=== PATIENT | male | born 1940 | race Caucasian/White ===

== ENCOUNTER 2016-07-20 08:35 | Observation (INO) | payer MEDICARE ==
[2016-07-20] MEDS ORDERED: NS 0.9% 1000 ML* 2,000 ML IV ONE (08:53)
--- NOTE | 2016-07-20 09:34 | RAD ---
INDICATION: Altered mental status. COMPARISON: Comparison is made with a prior chest x-ray study from January 19, 2016. TECHNIQUE: A portable view of the chest was obtained. FINDINGS: The patient is status poststernotomy. The heart appears mildly enlarged and unchanged from the prior exam. The lungs are clear. No pleural effusion is seen. IMPRESSION: POSTSURGICAL CHANGES, NO EVIDENCE FOR ACUTE FINDING.
[2016-07-20] MEDS ORDERED: Morphine INJ* 4 MG/ML 1 ML SYRINGE IV ONE (09:40)
[2016-07-20] MEDS ORDERED: Ondansetron INJ* 2 MG/ML VIAL IV ONE (09:40)
[2016-07-20] MEDS ORDERED: Meclizine TAB* 12.5 MG PO ONE (10:08)
[2016-07-20 10:10] LABS: Hematocrit 41 % (42-52); Hemoglobin 13.7 g/dl (14.0-18.0); Mean Corpuscular HGB Conc 33 g/dl (31-36); Mean Corpuscular Hemoglobin 32 pg (27-31); Mean Corpuscular Volume 97 fL (80-94); Mean Platelet Volume 8 um3 (7.4-10.4); Red Blood Count 4.26 10^6/ul (4.0-5.4); Red Cell Distribution Width 14 % (10.5-15); White Blood Count 5.8 10^3/ul (3.5-10.8)
[2016-07-20 10:30] LABS: Albumin 3.9 g/dL (3.2-5.2); BUN/Creatinine Ratio 24.3 (8-20); C Reactive Protein 1.32 mg/L (< 5.00); Calcium 8.8 mg/dL (8.6-10.3); EGFR African American 79.5 (>60); EGFR Non-African American 61.8 (>60); Globulin 2.6 g/dL (2-4); Magnesium 2.1 mg/dL (1.9-2.7); Potassium 4.4 mmol/L (3.5-5.0); Total Bilirubin 1.1 mg/dL (0.2-1.0); Total Protein 6.5 g/dL (6.4-8.9)
[2016-07-20] MEDS ORDERED: Iohexol 350* (CONTRAST) 500 ML MDV IV ONE (10:59)
[2016-07-20 11:04] LABS: TSH (Thyroid Stimulating Horm) 2.42 mcIU/mL (0.34-5.60)
--- NOTE | 2016-07-20 11:54 | RAD ---
INDICATION: Neck pain. COMPARISON: Comparison is made with a prior CT of the cervical spine from November 17, 2015. TECHNIQUE: Contiguous axial sections were obtained from the skull base through the T1 vertebra. Images were reconstructed in the sagittal and coronal planes. FINDINGS: The patient's neck is flexed forward. There is a mild cervical scoliosis convex toward the left side. The vertebra otherwise in normal alignment. No fracture is seen. At the C2-C3 level there is mild posterior uncinate process spurring. No significant spinal canal narrowing is present. There is mild bilateral neural foraminal narrowing. At the C3-C4 level there is mild posterior uncinate process spurring associated with a small central disc protrusion. There are moderate hypertrophic changes within the facet joints. There is mild spinal canal narrowing. There is mild neural foraminal narrowing on the right side and moderate neural foraminal narrowing on the left side. At the C4-C5 level there is mild posterior uncinate process spurring which causes mild spinal canal narrowing. There are moderate hypertrophic changes within the facet joints. There is moderate bilateral neural foraminal narrowing. At the C5-C6 level there is mild to moderate posterior uncinate process spurring. There is mild to moderate spinal canal narrowing and mild to moderate bilateral neural foraminal narrowing. At the C6-C7 level there is mild posterior uncinate process spurring. There is mild spinal canal narrowing. There is mild neural foraminal narrowing on the right side. IMPRESSION: 1. NO EVIDENCE FOR FRACTURE OR SUBLUXATION. 2. MILD TO MODERATE CERVICAL SPONDYLOSIS IF THE PATIENT'S SYMPTOMS PERSIST, RECOMMEND MR IMAGING.
--- NOTE | 2016-07-20 12:07 | RAD ---
HISTORY: Headache, neck pain COMPARISONS: Head CT dated January 19, 2016 TECHNIQUE: Multiple contiguous axial CT scans were obtained of the head before and after and of the neck After the administration of nonionic intravenous contrast timed to the systemic arterial phase of contrast enhancement. Coronal and sagittal multiplanar reformations are submitted for review. Multiple 3-D maximum intensity projection reconstructions are also submitted for review. FINDINGS: CTA NECK: AORTIC ARCH: There is atherosclerosis of the aortic arch. The left vertebral artery originates from the aortic arch. There is no appreciable ostial or proximal stenosis of the cephalic great vessels. RIGHT VERTEBRAL ARTERY: The right vertebral artery is patent along its course, without stenosis. There is calcification of the V4 segment. LEFT VERTEBRAL ARTERY: The left vertebral artery is patent along its course, without stenosis. DOMINANCE: The right vertebral artery is dominant. RIGHT COMMON CAROTID ARTERY: The right common carotid artery is patent. The right carotid bifurcation occurs at C4-C5 RIGHT INTERNAL CAROTID ARTERY: There is atheromatous disease of the right carotid bifurcation, without right internal carotid artery stenosis by NASCET criteria. RIGHT EXTERNAL CAROTID ARTERY: The right external carotid artery is unremarkable. LEFT COMMON CAROTID ARTERY: The left common carotid artery is patent. The left carotid bifurcation occurs at C4-C5 LEFT INTERNAL CAROTID ARTERY: There is atheromatous disease of the left carotid bifurcation, with approximately 20% left internal carotid artery stenosis by NASCET criteria. LEFT EXTERNAL CAROTID ARTERY: The left external carotid artery is unremarkable. VENOUS CIRCULATION: The venous system is unremarkable. SALIVARY GLANDS: The parotid glands, submandibular glands, sublingual glands are normal. NASAL CAVITY/NASOPHARYNX: The nasal cavity and nasopharynx are normal. ORAL CAVITY/OROPHARYNX: The oral cavity and oropharynx are unremarkable. LARYNGEAL APPARATUS/HYPOPHARYNX: The laryngeal apparatus and hypopharynx are normal. UPPER AIRWAY/UPPER ESOPHAGUS: The visualized upper airway and esophagus are normal. LUNG APICES: The lung apices are clear. THYROID GLAND: The thyroid gland is normal. LYMPH NODES: There is no lymphadenopathy by size criteria. BONES AND SOFT TISSUES: Degenerative changes are noted along the spine. CTA HEAD: INTRACRANIAL CIRCULATION: There is no aneurysm, vascular malformation, occlusion, or stenosis of the visualized intracranial circulation. There is calcification of the cavernous segments of internal carotid arteries bilaterally and of the distal right vertebral artery.. The anterior communicating artery complex is clear. Bilateral posterior communicating arteries are identified. VENOUS CIRCULATION: The venous system is unremarkable. PERFUSION: There is no obvious parenchymal perfusion deficit. HEMORRHAGE/INFARCT: There is no hemorrhage or acute infarct. MASSES/SHIFT: There is no mass or shift. EXTRA-AXIAL SPACES: There are no extra-axial fluid collections. SULCI AND VENTRICLES: The sulci and ventricles are normal in size and position for the patient's stated age. CEREBRUM: There are no focal parenchymal abnormalities. BRAINSTEM: There are no focal parenchymal abnormalities. CEREBELLUM: There are no focal parenchymal abnormalities. PARANASAL SINUSES: The paranasal sinuses are clear. ORBITS: The orbits are unremarkable. BONES AND SOFT TISSUE: No bone or soft tissue abnormalities are noted. OTHER: There is no abnormal enhancement. IMPRESSION: 1. NO ACUTE INTRACRANIAL PATHOLOGY. 2. ATHEROSCLEROSIS. 3. NO RIGHT INTERNAL CAROTID ARTERY STENOSIS BY NASCET CRITERIA. APPROXIMATELY 20% LEFT INTERNAL CAROTID ARTERY STENOSIS BY NASCET CRITERIA. 4. NO ANEURYSM, VASCULAR MALFORMATION, OCCLUSION, OR STENOSIS OF THE VISUALIZED INTRACRANIAL CIRCULATION. CPT II Codes: 3100F
[2016-07-20] MEDS ORDERED: NS 0.9% 1000 ML* 1,000 ML IV ONE (12:26)
[2016-07-20] MEDS ORDERED: Ketorolac INJ* 30 MG/ML 1 ML VIAL IV ONE (12:26)
[2016-07-20 14:22] LABS: Urine Bacteria Absent (Absent); Urine Bilirubin Negative (Negative); Urine Glucose Negative (Negative); Urine Nitrite Negative (Negative)
--- NOTE | 2016-07-20 14:57 | ED ---
Maurice Owens Auryana, scribed for Sony Alfonso MD on 07/20/16 at 0937 . Dizziness - HPI Summary HPI Summary: 76 year old male presents with dizziness starting this morning after getting out of bed. He characterizes the dizziness as room spinning. He also has blurred vision, back pain, neck pain that radiated up the back of the head. He states that the head pain is a 10/10. He denies any previous episodes-reports that the head pain is much worse today. He also states that he has chronic neck pain that radiates up the head- aggravated by movement. PMHx is significant for HTN, HLD, Parkinsons, and arthritis- chronic neck pain. - History Of Current Complaint Chief Complaint: EDDizziness Stated Complaint: VERTIGO Time Seen by Provider: 07/20/16 09:14 Hx Obtained From: Patient, Family/Surveillance Technician Onset/Duration: Still Present Timing: Constant Severity Initially: Mild Severity Currently: Mild Character: Room Spinning Aggravating Factor(s): Other - movement aggravates neck and head pain Associated Signs And Symptoms: Positive: Visual Changes - blurred vision, Other : - neck, head, and back pain - Allergies/Home Medications Allergies/Adverse Reactions: Allergies Allergy/AdvReac Type Severity Reaction Status Date / Time Penicillins Allergy Intermediate Rash Verified 12/20/11 14:00 PMH/Surg Hx/FS Hx/Imm Hx Endocrine/Hematology History: Denies: Hx Diabetes Cardiovascular History: Reports: Hx Coronary Artery Disease, Hx Hypercholesterolemia, Hx Hypertension Denies: Hx Congestive Heart Failure, Hx Pacemaker/ICD GI History: Reports: Other GI Disorders - constipation Musculoskeletal History: Reports: Hx Arthritis Sensory History: Reports: Hx Cataracts, Hx Contacts or Glasses Denies: Hx Hearing Aid Opthamlomology History: Reports: Hx Cataracts, Hx Contacts or Glasses Psychiatric History: Denies: Hx Panic Disorder - Surgical History Surgery Procedure, Year, and Place: CORONARY STENT Hx Anesthesia Reactions: Yes Infectious Disease History: No Infectious Disease History: Denies: Traveled Outside the [place] in Last 30 Days - Family History Known Family History: Positive: Cardiac Disease, Diabetes - brother - Social History Occupation: Retired Lives: With Family Alcohol Use: None Substance Use Type: Reports: None Hx Tobacco Use: No Smoking Status (MU): Never Smoked Tobacco Review of Systems Positive: Other - dizziness. Negative: Fever Positive: Blurred Vision ENT: Negative Cardiovascular: Negative Respiratory: Negative Positive: Arthralgia - back and neck pain Skin: Negative Positive: Headache Psychological: Normal All Other Systems Reviewed And Are Negative: Yes Physical Exam Triage Information Reviewed: Yes Vital Signs On Initial Exam: Initial Vitals Temp Pulse Resp BP Pulse Ox 98.1 F 71 16 175/79 96 07/20/16 08:46 07/20/16 08:46 07/20/16 08:46 07/20/16 08:46 07/20/16 08:46 Vital Signs Reviewed: Yes Appearance: Positive: Well-Appearing, Pain Distress - mild Skin: Positive: Warm, Skin Color Reflects Adequate Perfusion, Dry Head/Face: Positive: Normal Head/Face Inspection Eyes: Positive: EOMI, EDDIE ENT: Positive: Normal ENT inspection Neck: Positive: Supple, Nontender Respiratory/Lung Sounds: Positive: Clear to Auscultation, Breath Sounds Present Cardiovascular: Positive: RRR Abdomen Description: Positive: Nontender, Soft Bowel Sounds: Positive: Present Musculoskeletal: Positive: Normal, Strength/ROM Intact Neurological: Positive: Normal, Sensory/Motor Intact - slowed reaction time - pmhx is significant for parkinsons, Alert, Oriented to Person Place, Time, CN Intact II-III, Other - no focal neurological deficits Psychiatric: Positive: Normal, Affect/Mood Appropriate Diagnostics - Vital Signs Vital Signs Temp Pulse Resp BP Pulse Ox 07/20/16 08:46 98.1 F 71 16 175/79 96 - Laboratory Lab Results: Lab Results 07/20/16 07/20/16 07/20/16 Range/Units 09:45 09:45 09:45 WBC 5.8 (3.5-10.8) 10^3/ul RBC 4.26 (4.0-5.4) 10^6/ul Hgb 13.7 L (14.0-18.0) g/dl Hct 41 L (42-52) % MCV 97 H (80-94) fL MCH 32 H (27-31) pg MCHC 33 (31-36) g/dl RDW 14 (10.5-15) % Plt Count 133 L (150-450) 10^3/ul MPV 8 (7.4-10.4) um3 Neut % (Auto) 65.0 (38-83) % Lymph % (Auto) 23.8 L (25-47) % [place] % (Auto) 8.5 (1-9) % Eos % (Auto) 2.1 (0-6) % Baso % (Auto) 0.6 (0-2) % Absolute Neuts (auto) 3.8 (1.5-7.7) 10^3/ul Absolute Lymphs (auto) 1.4 (1.0-4.8) 10^3/ul Absolute Monos (auto) 0.5 (0-0.8) 10^3/ul Absolute Eos (auto) 0.1 (0-0.6) 10^3/ul Absolute Basos (auto) 0 (0-0.2) 10^3/ul Absolute Nucleated RBC 0 10^3/ul Nucleated RBC % 0 INR (Anticoag Therapy) 0.95 (0.89-1.11) APTT 25.6 L (26.0-36.3) seconds D-Dimer, Quantitative 203 (Less Than 230) ng/mL Sodium 139 (133-145) mmol/L Potassium 4.4 (3.5-5.0) mmol/L Chloride 105 (101-111) mmol/L Carbon Dioxide 28 (22-32) mmol/L Anion Gap 6 (2-11) mmol/L BUN 28 H (6-24) mg/dL Creatinine 1.15 (0.67-1.17) mg/dL Est GFR ( Amer) 79.5 (>60) Est GFR (Non-Af Amer) 61.8 (>60) BUN/Creatinine Ratio 24.3 H (8-20) Glucose 121 H (70-100) mg/dL Lactic Acid (0.5-2.0) mmol/L Calcium 8.8 (8.6-10.3) mg/dL Magnesium 2.1 (1.9-2.7) mg/dL Total Bilirubin 1.10 H (0.2-1.0) mg/dL AST 18 (13-39) U/L ALT 4 L (7-52) U/L Alkaline Phosphatase 92 (34-104) U/L Total Creatine Kinase 85 (10-223) U/L CK-MB (CK-2) 1.9 (0.6-6.3) ng/mL Troponin I 0.00 (<0.04) ng/mL C-Reactive Protein 1.32 (< 5.00) mg/L B-Natriuretic Peptide ( - 100) pg/mL Total Protein 6.5 (6.4-8.9) g/dL Albumin 3.9 (3.2-5.2) g/dL Globulin 2.6 (2-4) g/dL Albumin/Globulin Ratio 1.5 (1-3) Lipase 23 (11.0-82.0) U/L TSH 2.42 (0.34-5.60) mcIU/mL Urine Color Urine Appearance Urine pH (5-9) Ur Specific [place] (1.010-1.030) Urine Protein (Negative) Urine Ketones (Negative) Urine Blood (Negative) Urine Nitrate (Negative) Urine Bilirubin (Negative) Urine Urobilinogen (Negative) Ur Leukocyte Esterase (Negative) Urine WBC (Auto) (Absent) Urine RBC (Auto) (Absent) Urine Bacteria (Absent) Urine Glucose (Negative) 07/20/16 07/20/16 07/20/16 Range/Units 09:45 09:45 14:10 WBC (3.5-10.8) 10^3/ul RBC (4.0-5.4) 10^6/ul Hgb (14.0-18.0) g/dl Hct (42-52) % MCV (80-94) fL MCH (27-31) pg MCHC (31-36) g/dl RDW (10.5-15) % Plt Count (150-450) 10^3/ul MPV (7.4-10.4) um3 Neut % (Auto) (38-83) % Lymph % (Auto) (25-47) % [place] % (Auto) (1-9) % Eos % (Auto) (0-6) % Baso % (Auto) (0-2) % Absolute Neuts (auto) (1.5-7.7) 10^3/ul Absolute Lymphs (auto) (1.0-4.8) 10^3/ul Absolute Monos (auto) (0-0.8) 10^3/ul Absolute Eos (auto) (0-0.6) 10^3/ul Absolute Basos (auto) (0-0.2) 10^3/ul Absolute Nucleated RBC 10^3/ul Nucleated RBC % INR (Anticoag Therapy) (0.89-1.11) APTT (26.0-36.3) seconds D-Dimer, Quantitative (Less Than 230) ng/mL Sodium (133-145) mmol/L Potassium (3.5-5.0) mmol/L Chloride (101-111) mmol/L Carbon Dioxide (22-32) mmol/L Anion Gap (2-11) mmol/L BUN (6-24) mg/dL Creatinine (0.67-1.17) mg/dL Est GFR ( Amer) (>60) Est GFR (Non-Af Amer) (>60) BUN/Creatinine Ratio (8-20) Glucose (70-100) mg/dL Lactic Acid 1.5 (0.5-2.0) mmol/L Calcium (8.6-10.3) mg/dL Magnesium (1.9-2.7) mg/dL Total Bilirubin (0.2-1.0) mg/dL AST (13-39) U/L ALT (7-52) U/L Alkaline Phosphatase (34-104) U/L Total Creatine Kinase (10-223) U/L CK-MB (CK-2) (0.6-6.3) ng/mL Troponin I (<0.04) ng/mL C-Reactive Protein (< 5.00) mg/L B-Natriuretic Peptide 48 ( - 100) pg/mL Total Protein (6.4-8.9) g/dL Albumin (3.2-5.2) g/dL Globulin (2-4) g/dL Albumin/Globulin Ratio (1-3) Lipase (11.0-82.0) U/L TSH (0.34-5.60) mcIU/mL Urine Color Straw Urine Appearance Clear Urine pH 6.0 (5-9) Ur Specific Venus 1.016 (1.010-1.030) Urine Protein Negative (Negative) Urine Ketones Negative (Negative) Urine Blood 1+ H (Negative) Urine Nitrate Negative (Negative) Urine Bilirubin Negative (Negative) Urine Urobilinogen Negative (Negative) Ur Leukocyte Esterase Negative (Negative) Urine WBC (Auto) Absent (Absent) Urine RBC (Auto) Trace(0-2/hpf) (Absent) Urine Bacteria Absent (Absent) Urine Glucose Negative (Negative) Result Diagrams: 07/20/16 09:45 07/20/16 09:45 Lab Statement: Any lab studies that have been ordered have been reviewed, and results considered in the medical decision making process. - Radiology CXR Xray Interpretation: No Acute Changes - IMPRESSION: POSTSURGICAL CHANGES, NO EVIDENCE FOR ACUTE FINDING. Radiology Interpretation Completed By: Radiologist - CT CERVICAL CT Interpretation: Positive (See Comments) - IMPRESSION: 1. NO EVIDENCE FOR FRACTURE OR SUBLUXATION. 2. MILD TO MODERATE CERVICAL SPONDYLOSIS IF THE PATIENT 'S SYMPTOMS PERSIST, RECOMMEND MR IMAGING. CT Interpretation Completed By: Radiologist HEAD CTA CT Interpretation: No Acute Changes - IMPRESSION: 1. NO ACUTE INTRACRANIAL PATHOLOGY. 2. ATHEROSCLEROSIS. 3. NO RIGHT INTERNAL CAROTID ARTERY STENOSIS BY NASCET CRITERIA. APPROXIMATELY 20% LEFT INTERNAL CAROTID ARTERY STENOSIS BY NASCET CRITERIA. 4. NO ANEURYSM, VASCULAR MALFORMATION, OCCLUSION, OR STENOSIS OF THE VISUALIZED INTRACRANIAL CIRCULATION. CT Interpretation Completed By: Radiologist BRAIN CT Interpretation: No Acute Changes - IMPRESSION: 1. NO ACUTE INTRACRANIAL PATHOLOGY. 2. ATHEROSCLEROSIS. 3. NO RIGHT INTERNAL CAROTID ARTERY STENOSIS BY NASCET CRITERIA. APPROXIMATELY 20% LEFT INTERNAL CAROTID ARTERY STENOSIS BY NASCET CRITERIA. 4. NO ANEURYSM, VASCULAR MALFORMATION, OCCLUSION, OR STENOSIS OF THE VISUALIZED INTRACRANIAL CIRCULATION. CT Interpretation Completed By: Radiologist - EKG 09:01 EKG Interpretation: NSR @ 64, [address] elevation V1, flatten T in III, no ectopy National Institutes Of Health - NIH Scale Level of Consciousness: Alert/Keenly Responsive - slowed - Dx: parkinsons Ask Patient the Month and His/Her Age: Both Correct Ask Pt to Open/Close Eyes and Slotter Operator Helper/Release Non-Paretic Hand: Both Correctly Best Gaze (Only Horizontal Eye Movement): Normal Visual Field Testing: No Visual Loss Facial Paresis-Pt to Smile & Close Eyes or Grimace Symmetry: Normal/Symmetrical Motor Function - Right Arm: No Drift-Holds 10 Seconds Motor Function - Left Arm: No Drift-Holds 10 Seconds Motor Function - Right Leg: No Drift-Holds 10 Seconds Motor Function - Left Leg: No Drift-Holds 10 Seconds Limb Ataxia-Must be out of Proportion to Weakness Present: Absent Sensory (Use Pinprick to Test Arms/Legs/Trunk/Face): Normal Best Language (Describe Picture, Name Items): No Aphasia Dysarthria (Read Several Words): Normal Extinction and Inattention: No Abnormality Total Score: 0 Dizzy Course/Dx - Course Course Of Treatment: NO CRITICAL CARE TIME Assessment/Plan: FARIAS AND DIZZINESS DECREASED IN ED HOWEVER, PATIENT UNABLE TO AMBULATE SAFELY. HE HAS PARKINSONS AND LIVES ALONE. ADMIT HOSPITALIST STABLE. - Diagnoses Provider Diagnoses: Headache, Neck pain, Dizziness - Provider Notifications Discussed Care Of Patient with: HOSPITALIST Time Discussed With Above Provider: 14:45 Discharge - Discharge Plan Condition: Stable Disposition: ADMITTED TO [facility] Referrals: Sony Kwok MD [Primary Care Provider] - The documentation as recorded by the Maurice snowden Auryana accurately reflects the service I personally performed and the decisions made by , Sony Alfonso MD.
[2016-07-20] MEDS ORDERED: Acetaminophen TAB* 325 MG PO PRN (16:10)
[2016-07-20] MEDS ORDERED: Polyethylene Glycol 3350* 17 GM PACKET PO PRN (16:12)
[2016-07-20] MEDS ORDERED: NS 0.9% 1000 ML* 1,000 ML IV SCH (16:15)
[2016-07-20] MEDS ORDERED: Carbidopa/Levodop 25/100 MG TAB(*) ONE (16:19)
[2016-07-20] MEDS: Carbidopa/Levodop 25/100 MG TAB(*) PO SCH ×2 (16:21→20:22)
[2016-07-20] MEDS: Metoprolol Succinate XL TAB* 50 MG PO SCH (17:12)
--- NOTE | 2016-07-20 20:15 | HP ---
HISTORY AND PHYSICAL: DATE OF ADMISSION: 07/20/16 PRIMARY CARE PROVIDER: Dr. Kwok. NEUROLOGIST: Dr. Talbert. CHIEF COMPLAINT: Dizziness. HISTORY OF PRESENT ILLNESS: Cristhian Jennings is a 76-year-old male with a history of Parkinson's, who stated that today in the morning, he got up and he proceeded to get up from bed and he noted to be lightheaded. He stated that he developed vertigo and the room was spinning. He was given meclizine in the emergency department and the dizziness improved. He said that he still feels a little bit unsteady on his feet, but he ambulated with a roller walker without any major problems. Nevertheless, he has several steps in his home and he is not strong enough to be able to return home at this point. He is going to be placed on overnight observation with a diagnosis of dizziness. PAST MEDICAL HISTORY: 1. Parkinson's. 2. Hyperlipidemia. 3. Hypertension. 4. Coronary artery disease. 5. Arthritis. 6. Constipation. 7. Status post coronary artery bypass grafting. MEDICATIONS: 1. Polyethylene glycol 17 g daily p.r.n. 2. [place]-3 fatty acids 1000 mg daily. 3. Naproxen 500 mg daily. 4. Aspirin 81 mg daily. 5. Metoprolol succinate 150 mg daily. 6. Carbidopa/levodopa 25/100 one tablet at 7 a.m., 11, 1500, and 1900. 7. Lipitor 10 mg daily. FAMILY HISTORY: Positive for mother who at the age of 54 secondary to [place]. Father who in his 80s secondary to prostate cancer. All of his brothers had "heart attacks." SOCIAL HISTORY: The patient quit smoking 40 years ago. He denies any alcohol or drug use. He lives with his brother. He lists him as his surrogate. His name is Shailesh Jennings. The patient's [id number] who is present in the room stated that the patient usually ambulates independently. He has multiple stairs to all parts of his home. He had been driving "only to [place]" in the past several days. REVIEW OF SYSTEMS: Please see history of present illness. The patient stated that he is a little bit "slower" today due to not taking his medications while in the ED. Otherwise, he had been in his usual state of health. He denies any chest pain or shortness of breath. He did not have any recent upper respiratory infection symptoms. Had no history of nausea, vomiting, or diarrhea. All the remaining 14 systems were reviewed with the patient and were otherwise negative. Please also note that the patient is slightly forgetful. It is difficult to obtain an entire history from him. Please note that the patient's [id number] mentioned that the patient has problems with his neck and has had problems with his neck for quite some time and he is unable to turn his head to left or to right due to severe osteoarthritis. PHYSICAL EXAMINATION GENERAL: The patient is a 76-year-old male, very pleasant, who is in no acute distress. The patient is alert and oriented x3. Poor short-term memory. VITAL SIGNS: Blood pressure of 169/78, heart rate of 67 and regular, respiratory rate 17, oxygen saturation 95% on room air. HEENT: Head: Atraumatic, normocephalic. Eyes: Pupils equal, reactive to light and accommodation. Oropharynx clear. Mucosa moist. NECK: Supple. No JVD, no bruit bilaterally. RESPIRATORY: Clear to auscultation bilaterally. CARDIOVASCULAR: Regular rate and rhythm. No murmur. ABDOMEN: Soft, nontender. Bowel sounds present in all 4 quadrants. EXTREMITIES: There is trace bilateral ankle edema. Pulses +2 bilaterally. There is no clubbing or cyanosis. NEURO: The patient has masked facies. He is noted to have rigidity. He is definitely slow to respond. He is able to get out of bed with 1-person support and ambulate with a roller walker without any assistance. His [id number] is not dysmetric. His strength is 5/5 bilaterally. His speech is clear. There is no pronator drift. DIAGNOSTIC STUDIES/LAB DATA: hemoglobin of 13.7, hematocrit of 41, MCV of 97 , and platelets of 133. Sodium 139, potassium 4.4, chloride 100, carbon dioxide 28, BUN 28, creatinine 1.15. Liver function tests were unremarkable except for mild elevation of bilirubin of 1.1. Head CTA, impression: "No acute intracranial pathology. Atherosclerosis. No right internal carotid artery stenosis by NASCET criteria. Approximately, 20% left internal carotid artery stenosis by the criteria. No aneurysm, vascular malformation, occlusion, or stenosis of the visualized intracranial circulation. C-spine CT, impression: "No evidence for fracture or subluxation. Mild-to- moderate cervical spondylosis. If the patient's symptoms persist, recommend MRI imaging." Brain CT, impression: "No acute intracranial pathology." The patient's EKG showed normal sinus rhythm with a heart rate of 64 beats per minute with prolonged NH interval. There were no ST changes. Portable chest x-ray, impression: "Postsurgical changes. No evidence for acute findings." ASSESSMENT AND PLAN: Cristhian Jennings is a 76-year-old male with a history of Parkinson's, who has had problems with ambulation for quite some time. Today, he presents with dizziness that happened upon getting up from bed. He had a very similar presentation in February 2016. At this point, brain MRI and C- spine MRI were performed and apart from the C-spine MRI showing degenerative disk disease, there was no evidence of abnormalities. The patient's sister-in- law who was present today in the room stated that the patient had exactly the same symptoms today as in February. The patient did appear to have slight orthostasis when I checked him today. When he sat up, his blood pressures were in the 180s. When he stood up, they were 160. At this point, I suspect this is multifactorial and he may be slightly orthostatic and dehydrated. It may also be progression of his Parkinson's and autonomic dysfunction. At this point, I will place him on gentle intravenous hydration and reinstitute his levodopa that he has not had today yet. I will ask Physical Therapy to see the patient in the morning for evaluation. At this point, there is no indication that the patient needs a repeat MRI since he had that done in February for exactly the same symptoms. Also, please note that the patient's symptoms are improving after meclizine treatment in the ED. In regards to the patient's Parkinson's, the patient is going to be continued to be treated with Sinemet. For his hypertension, we will restart his hypertensive medications from home. For DVT prophylaxis, the patient is going to be placed on heparin subcutaneously. The patient's code status was discussed with the patient and he requested to be a full code. TIME SPENT: Approximately 65 minutes was spent on admission of this patient, more than half that time was spent [id number] with the patient during the interview and physical exam. CC: Dr. Kwok* [id number]/[facility] #: [id number] SUSANA
[2016-07-20] MEDS: Docusate CAP* 100 MG PO SCH (20:22)
[2016-07-20] MEDS: Heparin VIAL(*) 5000 UNITS/ML VIAL (FIVE THOUSAND) SUBCUT SCH (22:23)
[2016-07-21] MEDS: Carbidopa/Levodop 25/100 MG TAB(*) PO SCH ×2 (05:50→12:12)
[2016-07-21] MEDS: Heparin VIAL(*) 5000 UNITS/ML VIAL (FIVE THOUSAND) SUBCUT SCH (05:51)
[2016-07-21 06:03] LABS: Hematocrit 39 % (42-52); Hemoglobin 12.7 g/dl (14.0-18.0); Mean Corpuscular HGB Conc 33 g/dl (31-36); Mean Corpuscular Hemoglobin 33 pg (27-31); Mean Corpuscular Volume 99 fL (80-94); Mean Platelet Volume 8 um3 (7.4-10.4); Red Blood Count 3.91 10^6/ul (4.0-5.4); Red Cell Distribution Width 15 % (10.5-15); White Blood Count 4.7 10^3/ul (3.5-10.8)
[2016-07-21 06:17] LABS: BUN/Creatinine Ratio 23.9 (8-20); Calcium 8.1 mg/dL (8.6-10.3); EGFR African American 77.9 (>60); EGFR Non-African American 60.6 (>60); Potassium 4.7 mmol/L (3.5-5.0)
[2016-07-21] MEDS: Docusate CAP* 100 MG PO SCH (08:09)
[2016-07-21] MEDS: Metoprolol Succinate XL TAB* 50 MG PO SCH (08:09)
[2016-07-21] MEDS ORDERED: Aspirin EC Low Dose* 81 MG TAB.EC PO SCH (09:00)
[2016-07-21] MEDS ORDERED: Atorvastatin* 10 MG TAB PO SCH (09:00)
[2016-07-21 13:48] VITALS: BP 129/60
--- NOTE | 2016-07-22 01:08 | DS ---
CC: Dr. Kwok; Dr. Talbert DISCHARGE SUMMARY: DATE OF ADMISSION: 07/20/16 DATE OF DISCHARGE: 07/21/16 PRIMARY CARE PROVIDER: Dr. Kwok. DISCHARGE DIAGNOSIS: Dizziness, most likely due to orthostasis. SECONDARY DIAGNOSES: 1. Parkinson's. 2. Hyperlipidemia. 3. Hypertension. 4. Coronary artery disease. 5. Arthritis. 6. History of constipation. 7. Status post coronary artery bypass grafting. MEDICATIONS AT DISCHARGE: Unchanged from admission and include: 1. Polyethylene glycol 17 g daily p.r.n. 2. [place]-3 fatty acids 1000 mg daily. 3. Naproxen 500 mg daily. 4. Aspirin 81 mg daily. 5. Metoprolol succinate 150 mg daily. 6. Carbidopa/levodopa 25/100 one tablet at 7 a.m., 11, 1500, and 1900. 7. Lipitor 10 mg daily. LABORATORY DATA AND STUDIES: Performed during the hospital stay included: On 07/21/16, white blood cell count of 4.7, hemoglobin of 12.7, hematocrit of 39 , and platelets of 108. Sodium was 140, potassium 4.7, chloride 108, carbon dioxide 30, BUN 28, creatinine 1.17. Remaining study included head CTA, brain CT, and cervical spine CT. For the report, please see history and physical dictated on 07/20/16. HOSPITALIZATION COURSE: Cristhian Jennings is a 76-year-old male with a history of Parkinson's, who stated that he got dizzy when he sat up in the morning after sleeping all night and developed dizziness. He came into the emergency department for evaluation. He was treated with meclizine and he improved greatly, but still continued to have somewhat unsteady gait and he was placed on observation. A very similar episode he had in February 2016 when an MRI of the brain and MRI of the C- spine was performed that were unremarkable. The patient stated that he does occasionally gets dizzy when he stands up. He also is deconditioned and has had problems with ambulation due to his Parkinson's. Nevertheless, he stated that he still continues to drive. During the admission, it was reinforced with the patient and the patient's family that he is not suppose to drive unless he is cleared by his primary care provider. The patient underwent physical therapy evaluation and he was noted be safe to ambulate and able to use stairs with the walker. He was noted to have orthostasis with systolic pressures going from 180s when he was being admitted and sitting down to 160 when he was standing up. It is possible that he has an element of autonomic dysfunction due to his Parkinson' s. Nevertheless, during his observation, he was also treated mild intravenous fluid hydration. We have continued his oral medications for his hypertension and he was normotensive by the time of discharge with no evidence of further dizziness. It is also possible that he does have an element of paroxysmal benign positional vertigo. I also advised for the patient to may be try to take his Sinemet when he still in bed and it will be easier for him to get out of bed after he takes it in the morning. Apparently in the past, the patient has had problems with getting out of bed and had fallen a couple of times. The patient has a brother at home with whom he lives with. His brother apparently has no problems with ambulation at all and he is able to help the patient at home. We will also set the VNS services for the patient with physical therapy. At discharge, the patient's medications are unchanged. Physical exam at discharge is unchanged from admission. [id number]/[facility] #: [id number] SUSANA
== END 2016-07-21 13:15 | disposition home or self-care (01) ==
LOC: ED 08:35 → MEDTELE 14:37
PROVIDERS: ADMIT Internal Medicine; ATTEND Internal Medicine
DX: R42 Dizziness and giddiness (principal); G20 Parkinson's disease; E78.5 Hyperlipidemia, unspecified; I10 Essential (primary) hypertension; E78.00 Pure hypercholesterolemia, unspecified; I25.10 Atherosclerotic heart disease of native coronary artery without angina pectoris; M19.90 Unspecified osteoarthritis, unspecified site; Z95.1 Presence of aortocoronary bypass graft; R94.31 Abnormal electrocardiogram [ECG] [EKG]; Z79.82 Long term (current) use of aspirin; Z79.899 Other long term (current) drug therapy; Z88.0 Allergy status to penicillin; Z87.891 Personal history of nicotine dependence
CPT/HCPCS: 36415; 70450; 70496; 70498; 71010; 72125; 80048; 80053; 81003; 81015; 82550; 82553; 83605; 83690; 83735; 83880; 84443; 84484; 85025; 85379; 85610; 85730; 86140; 93005; 96361; 96372; 96374; 99285; A9270-GY; G0378; G8978-GP-CI; G8979-GP-CI; G8980-GP-CI; J1644; J1885; J2270; J2405; Q9967

== ENCOUNTER 2017-07-07 12:33 | Emergency (ER) | payer MEDICARE, BC ==
[2017-07-07 14:50] VITALS: BP 172/81
== END 2017-07-07 16:14 | disposition left against medical advice (07) ==
LOC: ED 12:33
DX: R03.0 Elevated blood-pressure reading, without diagnosis of hypertension (principal); R69 Illness, unspecified; Z53.21 Procedure and treatment not carried out due to patient leaving prior to being seen by health care provider

== ENCOUNTER 2018-05-22 13:26 | Observation (INO) | payer MEDICARE, BC ==
--- NOTE | 2018-05-22 13:48 | ED ---
Altered Mental Status - HPI Summary HPI Summary: This pt is a 77 y/o male presenting to [facility] via EMS from home for confusion and unwitnessed fall. Family reports pt fell today and pt does not remember. Per brother, pt was warming up food in the microwave when he suddenly fell. Brother heard the thud from the fall and saw him on the floor but does not why pt fell. Upon arrival of another family member, pt did not know where he was. Per family, at the house pt was c/o right shoulder pain. Brother states pt has chronic back and hip pain. Family also report pt was unable to recognize them. Per brother, pt is usually active in the house with his cane and drives a few times a week. PMHx includes Parkinson's, quadruple bypass. His PCP is [facility]. - History Of Current Complaint Stated Complaint: AMS-[facility] Time Seen by Provider: 05/22/18 13:29 Hx Obtained From: Patient, Family/Suture Winder Hand - Brother Hx From Patient Unobtainable Due To: Other - pt with confusion Onset/Duration: Still Present Timing: Lasting Hours Character: Confusion Aggravating Factor(s): Unknown Alleviating Factor(s): Unknown Associated Signs And Symptoms: Positive: Recent Trauma. Negative: Fever Related History: Other: - unwitnessed fall today - Allergies/Home Medications Allergies/Adverse Reactions: Allergies Allergy/AdvReac Type Severity Reaction Status Date / Time Penicillins Allergy Severe Hives Verified 07/07/17 12:43 Home Medications: Home Medications Furosemide TAB* [Lasix TAB*] 20 mg PO BID 05/22/18 [History Confirmed 05/22/18] Losartan TAB* [Cozaar TAB*] 25 mg PO DAILY 05/22/18 [History Confirmed 05/22/18] Naproxen TAB* [Naprosyn 250 mg TAB*] 500 mg PO QAM 05/22/18 [History Confirmed 05/22/18] PMH/Surg Hx/FS Hx/Imm Hx Endocrine/Hematology History: Denies: Hx Diabetes Cardiovascular History: Reports: Hx Coronary Artery Disease, Hx Hypercholesterolemia, Hx Hypertension Denies: Hx Congestive Heart Failure, Hx Pacemaker/ICD GI History: Reports: Other GI Disorders - constipation Musculoskeletal History: Reports: Hx Arthritis Sensory History: Reports: Hx Cataracts, Hx Contacts or Glasses Denies: Hx Hearing Aid Opthamlomology History: Reports: Hx Cataracts, Hx Contacts or Glasses Psychiatric History: Denies: Hx Panic Disorder - Surgical History Surgery Procedure, Year, and Place: CORONARY STENT. Quadruple bypass surgery Hx Anesthesia Reactions: Yes Infectious Disease History: No Infectious Disease History: Denies: Traveled Outside the [place] in Last 30 Days - Family History Known Family History: Positive: Cardiac Disease, Diabetes - brother - Social History Alcohol Use: None Substance Use Type: Reports: None Hx Tobacco Use: No Smoking Status (MU): Never Smoked Tobacco Review of Systems - ROS Summary Review of Systems Summary: ROS IS LIMITED DUE TO LEVEL 5 CAVEAT - pt with confusion Negative: Fever Musculoskeletal: Other - POS: right shoulder pain Neurological: Other - POS: confusion All Other Systems Reviewed And Are Negative: No Physical Exam - Summary Physical Exam Summary: GENERAL: Patient is a well-developed and nourished male who is lying comfortable in the stretcher. Patient is not in any acute respiratory distress. HEAD AND FACE: Normocephalic EYES: PERRLA, EOMI x 2. EARS: Hearing grossly intact. MOUTH: Oropharynx within normal limits. NECK: Supple, trachea is midline, no adenopathy, no JVD, no carotid bruit. CHEST: Symmetric, no tenderness at palpation. Thoracotomy scar that is clean, dry, and intact. LUNGS: Clear to auscultation bilaterally. No wheezing or crackles. CVS: Regular rate and rhythm, S1 and S2 present, no murmurs or gallops appreciated. ABDOMEN: Soft, non-tender. Bowel sounds are normal. No abdominal abnormal pulsations. Abdomen is distended. EXTREMITIES: Tender to palpation on the right shoulder. NEURO: Alert and oriented x 3. No acute neurological deficits. Speech is normal and follows commands. SKIN: Dry and warm Triage Information Reviewed: Yes Vital Signs On Initial Exam: Initial Vitals Temp Pulse Resp BP Pulse Ox 98.2 F 74 16 171/80 95 05/22/18 13:38 05/22/18 13:38 05/22/18 13:38 05/22/18 13:38 05/22/18 13:38 Vital Signs Reviewed: Yes Completion Of Physical Exam Limited Due To: Level 5 - pt with confusion Diagnostics - Vital Signs Vital Signs Temp Pulse Resp BP Pulse Ox 05/22/18 13:38 98.2 F 74 16 171/80 95 - Laboratory Result Diagrams: 05/22/18 14:05 05/22/18 14:05 Lab Statement: Any lab studies that have been ordered have been reviewed, and results considered in the medical decision making process. - Radiology Chest XR Radiology Interpretation Completed By: Radiologist Summary of Radiographic Findings: IMPRESSION: Post surgical changes, no evidence for acute finding. Dr. Krueger has reviewed this report. Right shoulder XR Radiology Interpretation Completed By: Radiologist Summary of Radiographic Findings: IMPRESSION: Possible nondisplaced fracture of the glenoid process of the scapula. Dr. Krueger has reviewed this report. - CT Brain CT CT Interpretation Completed By: Radiologist Summary of CT Findings: IMPRESSION: No acute intracranial pathology. Dr. Krueger has reviewed this report. Cervical spine CT CT Interpretation Completed By: Radiologist Summary of CT Findings: IMPRESSION: Degenerative disc disease and osteoarthritis. No acute osseous injury to the cervical spine. Dr. Krueger has reviewed this report. Abdomen/Pelvis CT CT Interpretation Completed By: Radiologist Summary of CT Findings: IMPRESSION: 1. No evidence for acute intra-abdominal abnormality. 2. Hepatic steatosis. Dr. Krueger has reviewed this report. Right Upper Extremity CT CT Interpretation Completed By: Radiologist Summary of CT Findings: Pending official radiology report. - EKG 14:01 Cardiac Rate: NL - at 69 bpm EKG Rhythm: Sinus Rhythm EKG Comparison: No Significant Change - Similar to prior EKG. Summary of EKG Findings: Prolonged ME interval. IVCD. Re-Evaluation - Re-Evaluation First Eval Re-Evaluation Time: 16:19 Comment: Reviewed lab, CTs, and XRs results with pt and family. Discussed admission plan. Family and pt understand and agree. Altered Mental Statu Course/Dx - Course Assessment/Plan: Pt is a 77 y/o male presenting to [facility] via EMS from home for confusion and fall today. Labs remarkable for hemoglobin of 12.7, hematocrit of 38, platelet count of 116, creatinine of 1.3, ALT of 3. Brain CT is negative for an intracranial pathology. Cervical spine CT shows degenerative disc disease and osteoarthritis. No acute osseous injury to the cervical spine. Abdomen/pelvis CT reveals 1. No evidence for acute intra-abdominal abnormality. 2. Hepatic steatosis. Chest XR is negative. Right shoulder shows possible nondisplaced fracture of the glenoid process of the scapula. Therefore a CT of the right upper extremity was ordered. I discussed results with patient and family. The family agree with admission plan. Discussed the case with Dr. Proctor, hospitalist, who accepted the pt for admission. I also discussed with Dr. Proctor that there is a possible nondisplaced fracture of the right shoulder and a CT has been ordered. Dr. Proctor is aware of this. - Diagnoses Provider Diagnoses: Unwitnessed fall, Shoulder pain - Provider Notifications Discussed Care Of Patient With: Regina Proctor - hospitalist Time Discussed With Above Provider: 16:40 Instructed by Provider To: Admit As Inpatient Discharge - Sign-Out/Discharge Documenting (check all that apply): Patient Departure - Admit to [facility] Patient Received Moderate/Deep Sedation with Procedure: No - Discharge Plan Condition: Stable Disposition: ADMITTED TO [facility] Referrals: Eric Louie MD [Primary Care Provider] - - Billing Disposition and Condition Condition: STABLE Disposition: Admitted to [facility] - Attestation Statements Document Initiated by Scribe: Yes Documenting Scribe: Mirian Robles Provider For Whom Esau is Documenting (Include Credential): Oj Krueger MD Scribe Attestation: Mirian Owens, scribed for jO Krueger MD on 05/22/18 at 1824. Scribe Documentation Reviewed: Yes Provider Attestation: The documentation as recorded by the Mirian snowden accurately reflects the service I personally performed and the decisions made by , Oj Krueger MD Status of Scribe Document: Viewed
[2018-05-22 14:23] LABS: Activated Partial Thrombo Time 25.4 seconds (26.0-36.3); INR 0.98 (0.77-1.02)
[2018-05-22 14:27] LABS: ABS Basophils 0 10^3/ul (0-0.2); ABS Eosinophils 0.1 10^3/ul (0-0.6); ABS Lymphocytes 1.1 10^3/ul (1.0-4.8); ABS Monocytes 0.7 10^3/ul (0-0.8); ABS Neutrophils 3.8 10^3/ul (1.5-7.7); ABS Nucleated RBC 0 10^3/ul; Eosinophil % 1.5 %; Hematocrit 38 % (42-52); Hemoglobin 12.7 g/dl (14.0-18.0); Lymphocyte % 19.5 %; Mean Corpuscular HGB Conc 34 g/dl (31-36); Mean Corpuscular Hemoglobin 33 pg (27-31); Mean Corpuscular Volume 98 fL (80-94); Mean Platelet Volume 8.1 fL (7.4-10.4); Nucleated Red Blood Cells % 0; Platelet Count 116 10^3/ul (150-450); Red Blood Count 3.84 10^6/ul (4.00-5.40); Red Cell Distribution Width 14 % (10.5-15); White Blood Count 5.7 10^3/ul (3.5-10.8)
[2018-05-22 14:34] LABS: Albumin/Globulin Ratio 1.5 (1-3); BUN/Creatinine Ratio 26.2 (8-20); Calcium 8.8 mg/dL (8.6-10.3); EGFR African American 64.8 (>60); EGFR Non-African American 53.5 (>60); Globulin 2.7 g/dL (2-4); Magnesium 2.2 mg/dL (1.9-2.7); Potassium 4.4 mmol/L (3.5-5.0); Total Bilirubin 1.1 mg/dL (0.2-1.0); Total Protein 6.7 g/dL (6.4-8.9)
[2018-05-22 14:37] LABS: CKMB ng/mL 1.3 ng/mL (0.6-6.3)
[2018-05-22] MEDS ORDERED: Iodixanol* (CONTRAST) 320 MG/ML 100 ML SDV IV ONE (14:43)
[2018-05-22] MEDS ORDERED: NS 0.9% 1000 ML** 1,000 ML IV ONE (16:32)
[2018-05-22] MEDS ORDERED: Magnesium Hydroxide LIQ* 30 ML UDC PO PRN (17:59)
[2018-05-22] MEDS ORDERED: Acetaminophen TAB* 325 MG PO PRN (17:59)
[2018-05-22] MEDS ORDERED: Polyethylene Glycol 3350* 17 GM PACKET PO PRN (18:04)
[2018-05-22] MEDS ORDERED: hydrALAZINE IV* 20 MG/ML VIAL IV SLOW PU PRN (18:32)
[2018-05-22] MEDS ORDERED: oxyCODONE/Acetamin 5/325 MG* TAB PO PRN (18:42)
[2018-05-22] MEDS: Carbidopa/Levodop 25/100 MG TAB(*) PO SCH (21:18)
[2018-05-22] MEDS: Heparin VIAL(*) 5000 UNITS/ML VIAL (FIVE THOUSAND) SUBCUT SCH (21:19)
[2018-05-22] MEDS: Furosemide TAB* 20 MG PO SCH (21:19)
--- NOTE | 2018-05-23 00:16 | HP ---
CC: Dr. Louie; Dr. Alex Talbert * ADMISSION HISTORY AND PHYSICAL: DATE OF ADMISSION: 05/22/18 ATTENDING FOR THIS ADMISSION: Regina Reza MD * (DICTATED BY PAULO HUIZAR NP) PRIMARY CARE PROVIDER: Dr. Louie. NEUROLOGY: Dr. Alex Talbert. CHIEF COMPLAINT: Fall. HISTORY OF PRESENT ILLNESS: This is a very pleasant 77-year-old male patient with long-standing history of Parkinson's disease. He has had multiple falls in the past. He has also had some memory issues over the past year and was treated for orthostasis at one point as well with some concern for autonomic dysfunction. In any case, today, he was at home in his usual state of health. His brother was in the other room and he heard a thud and then found the patient on the floor. The patient did not have any recollection of the precipitating events. He did not lose consciousness. Brother said that he did not observe any lacerations. Patient, although he was awake for the entire event, seemed to not remember how he ended up on the floor. Discussing that with the patient in the emergency department, he denies that he had any precipitating events, but he is still having trouble remembering. There was also a questionable shoulder fracture, as there was potential that he had fracture of the glenoid. For these reasons, we were asked to evaluate the patient for admission. PAST MEDICAL HISTORY: Significant for hypertension, coronary artery disease, hyperlipidemia, Parkinson's disease, and frequent falls with gait dysfunction. He also has chronic arthritis and chronic constipation. PAST SURGICAL HISTORY: Significant for stents, 4-vessel CABG; bilateral ankle surgery secondary to trauma. MEDICATIONS: Medications at home include: 1. Lasix 20 mg p.o. b.i.d. 2. Sinemet 2 tabs at 7 a.m., 1 tab at 11 a.m., 2 tabs at 3 p.m., and 1 tab at 7 p.m. 3. Lipitor 10 mg daily. 4. Metoprolol succinate XL 150 mg p.o. daily. 5. MiraLax 17 g daily as needed. 6. Aspirin 81 mg daily. 7. Naprosyn 500 mg in the morning. 8. Losartan 25 mg p.o. daily. ALLERGIES: The patient has allergy to PENICILLIN. FAMILY HISTORY: Significant for mother who of SD at age 54. Father who in his 80s of prostate cancer. He has had other siblings that have had MIs and have coronary artery disease as well. SOCIAL HISTORY: The patient was former smoker, quit approximately 48 years ago. Denies any alcohol use. Denies any illicit drug use. He lives with his brother, Shailesh. His other brother Don is also at the bedside. REVIEW OF SYSTEMS: Patient denies any fever, fatigue or chills. No headaches. No blurry vision. Does state that he has some eye fatigue, but denies any visual disturbance. Denies shortness of breath. No chest pain. No abdominal pain. No nausea. No vomiting. He has got some general arthralgias and myalgias, particularly in the back and the shoulder. He also has described a burning like sensation bilaterally of the lower extremities and no further constitutional complaints. PHYSICAL EXAMINATION GENERAL: The patient is awake, alert, in no acute distress. VITAL SIGNS: Blood pressure 154/82, heart rate 63, respiratory rate 13, O2 saturation 93 to 96% on room air with a temperature of 98.2. HEENT: The patient is atraumatic, normocephalic. PERRLA. Nonicteric sclerae. He does have mass like appearance to his face. Oral mucosa is moist. He is edentulous. Tongue is midline. NECK: Supple, nontender. No JVD noted. No carotid bruit auscultated. LUNGS: Clear bilaterally to auscultation with no wheezing, rhonchi, or rales. CARDIOVASCULAR: S1, S2 present. No murmurs, gallops, or rubs noted. Rate and rhythm are regular. ABDOMEN: Soft, nontender, nondistended. Positive bowel sounds in all 4 quadrants. : Deferred. MUSCULOSKELETAL: There is no clubbing. No cyanosis. No edema. He has +2 distal pulses palpable. The patient states he does ambulate with a walker. He has not ambulated since being in the ED. NEUROLOGIC: He is currently alert and oriented x2. Again, no recollection of the previous events. He is a poor historian at baseline. Has equal administrative judge. No pronator drift. He has slurred speech at baseline, but it is difficult to discern secondary to his Parkinson's and again he is edentulous, but he is otherwise appropriate. PSYCHIATRIC: Cooperative, calm, and appropriate. LABORATORY DATA: WBCs 5.7, RBCs 3.84, hemoglobin 12.7, hematocrit 38, MCV 98, MCH 33, platelets 116. Sodium 141, potassium 4.4, chloride 1.5, CO2 of 29, BUN 34, creatinine 1.30. GFR 53.5, glucose 106, lactic acid 0.8, calcium 8.8, magnesium 2.2, total bilirubin 1.10, AST 13, ALT 3, alk phos 97. Troponin was negative at 0.00 and 0.01. BNP 48. Total protein 6.7, albumin 4.0, globulin 2.7. Albumin globulin ratio was 1.5. INR is 0.98. IMAGING: CT of the brain shows no acute intracranial pathology. CT of the cervical spine shows degenerative disk disease and osteoarthritis with no acute osseous injury to the cervical spine. Chest x-ray shows postsurgical changes, status post sternotomy and CABG which is noted. Heart is moderately enlarged but unchanged from previous imaging. CT of the abdomen and pelvis. CT shows no evidence for acute intra-abdominal abnormality. There was no bleeding and no traumatic injury. Shoulder x-ray: Initially the shoulder plain film showed possible nondisplaced fracture of glenoid process and scapula. CAT of the shoulder to confirm whether this is a fracture or not, shows no acute fracture. There was some degenerative change in the right shoulder. I also reviewed this film with Dr. Keenan of Orthopedics, who agrees there is no fracture. Lastly, EKG showed regular sinus rhythm, some nonspecific intraventricular conduction delay, no acute ST segment changes noted. IMPRESSION: This is a 77-year-old male with history of falls and gait dysfunction, parkinsonian-like gait, who presents status post fall, which was unwitnessed. PLAN: The patient has been admitted to observation. DIAGNOSES: 1. Fall. It is questionable whether the patient does have some autonomic dysfunction secondary to advancing Parkinson's. He did have history of some orthostasis in the past. Also, because this was an unwitnessed event and because the patient is stating he did not have a recollection of what happened prior to, I feel it would be worth it to get an EEG to ensure there was no seizure activity. Dr. Talbert has been consulted. He will see the patient tomorrow. I did discussed this with Dr. Herrera from Neurology, who is monorail helper , who agreed that completing an EEG and obtaining orthostatic vital signs would be warranted at this point. We will hold off on any advanced imaging until the patient is seen by Dr. Talbert. We will obtain physical therapy and occupational therapy consults given that the patient does have some peripheral neuropathy, it may also be playing into his current state to evaluate for his baseline functioning. 2. For his history of Parkinson disease, the patient is on Sinemet. His doses were confirmed to Dr. Herrera. Medications were adjusted. This will be continued and again Dr. Talbert will be seeing the patient tomorrow. 3. For his history of coronary artery disease, as stated above, his EKG has no changes. He does not endorse any shortness of breath or chest pain. Because he does not remember the events and we do not have recent echocardiogram, we will get an echo to evaluate for any valvular abnormalities and to assess left ventricular function. At this point, I think obtaining a stress test would not be needed unless we find some new findings on his echocardiogram. 4. For history of hypertension, he was hypertensive at admission. This may have been secondary to pain. The patient did have some high readings 170s/80s and at one point, a diastolic of 101. His blood pressure is currently improved , it is 154/82. I questioned if patient did not take all of his mediations this morning; however, we will continue him on his metoprolol XL, his Lasix and also his Cozaar. 5. For his history of hyperlipidemia, he will be continued on his baby aspirin daily and also Lipitor. 6. Diet: The patient should have a heart healthy diet. 7. Activity: Out of bed with assistance as tolerated. Again, with physical therapy and occupational therapy consults requested. 8. DVT prophylaxis. He will be placed on heparin subcu. 9. Code status: He is a full code. The rest of the patient's course will be determined by further diagnostics, laboratories and any other input from other providers as warranted during this admission. We will continue to monitored the patient closely and appreciate any recommendations from Neurology regarding this patient's plan of care. Please also note we have consulted Social Work to identify if the patient has any additional needs at home and this has also been discussed with his brother, who is at bedside. His brother is in agreement with the plan and this plan of care has been discussed also with Dr. Regina Reza, who is also in agreement with plan of care. TIME SPENT: >65 minutes PAULO HUIZAR, STAMPING MILL TENDER [id number]/[facility] #: [id number] SUSANA
[2018-05-23] MEDS: Heparin VIAL(*) 5000 UNITS/ML VIAL (FIVE THOUSAND) SUBCUT SCH ×3 (05:20→12:48)
[2018-05-23 07:24] LABS: Albumin 3.8 g/dL (3.2-5.2); Albumin/Globulin Ratio 1.5 (1-3); BUN/Creatinine Ratio 23.8 (8-20); Calcium 8.8 mg/dL (8.6-10.3); EGFR African American 82.9 (>60); EGFR Non-African American 68.5 (>60); Globulin 2.6 g/dL (2-4); Total Bilirubin 1.6 mg/dL (0.2-1.0); Total Protein 6.4 g/dL (6.4-8.9)
[2018-05-23] MEDS: Furosemide TAB* 20 MG PO SCH (07:55)
[2018-05-23] MEDS: Carbidopa/Levodop 25/100 MG TAB(*) PO SCH ×3 (07:56→14:24)
[2018-05-23] MEDS ORDERED: Losartan TAB* 25 MG PO SCH (09:00)
[2018-05-23] MEDS ORDERED: Atorvastatin* 10 MG TAB PO SCH (09:00)
[2018-05-23] MEDS ORDERED: Aspirin EC TAB* 81 MG TAB.EC PO SCH (09:00)
[2018-05-23] MEDS ORDERED: Metoprolol Succinate XL TAB* 50 MG PO SCH (09:00)
--- NOTE | 2018-05-23 15:12 | ECHO ---
Patient: JACKELINE FRYE [facility] Rec#: [id number] : 1940 Date: 05/23/2018 Age: 77y Height: 175 cm / 68.9 in Weight: 106.8 kg / 235.4 lbs Sex: M BSA: 2.2 Room#: 408 Admit Date#: 05/22/2018 Type: Inpatient Referring: Janel Marks Reading: Ish Martin MD Replanter: Su Rhodes RN RDCS CC: Eric Louie MD Transthoracic Echocardiogram Indication: CAD, altered mental status BP: 144/63 HR: 66 Rhythm: NSR Findings History: CAD with CABG and coronary stents, HTN, HLD, Parkinson's disease, frequent falls, former smoker Left Ventricle: The left ventricular chamber size is normal. Mild concentric left ventricular hypertrophy is observed. Septal wall hypertrophy is observed. There are multiple regional wall motion abnormalities. There is mild to moderately decreased left ventricular systolic function. The estimated ejection fraction is 40-45%. Ventricular septal wall motion has a post-operative appearance. Abnormal left ventricular diastolic function is observed. Left Atrium: The left atrium is slightly dilated. Right Ventricle: The right ventricular chamber size and systolic function are within normal limits. Right Atrium: The right atrium is mildly dilated. Aortic Valve: The aortic valve structure is not well visualized. The aortic valve leaflets are mildly thickened. There is mild aortic regurgitation. There is no evidence of aortic stenosis. Mitral Valve: The mitral valve leaflets are mildly thickened. There is trace to mild mitral regurgitation. There is no evidence of mitral stenosis. Tricuspid Valve: The tricuspid valve leaflets are normal. There is trace tricuspid regurgitation. Unable to estimate the right ventricular systolic pressure. There is no tricuspid stenosis. Pulmonic Valve: The pulmonic valve structure is not well visualized. There is no evidence of pulmonic regurgitation. There is no pulmonic stenosis. Pericardium: There is no significant pericardial effusion. A pericardial fat pad is visualized. Aorta: There is no dilatation of the ascending aorta. The aortic arch is not well visualized. There is no dilation of the aortic root. Pulmonary Artery: The main pulmonary artery is not well visualized. Venous: The venous system is not well visualized. The inferior vena cava is not visualized. Summary: There are changes noted when compared to the previous study done on 01/03/2005, now there is interval LV EF improvement from 25-30% then. Conclusions The left ventricular chamber size is normal. Mild concentric left ventricular hypertrophy is observed. There are multiple regional wall motion abnormalities. The estimated ejection fraction is 40-45%. WMA proximal to mid inferior wall and basal inferoseptum Ventricular septal wall motion has a post-operative appearance. The left atrium is slightly dilated. There is mild aortic regurgitation. There is trace to mild mitral regurgitation. There is trace tricuspid regurgitation. There are changes noted when compared to the previous study done on 01/03/2005, now there is interval LV EF improvement from 25-30% then. Measurements Name Value Normal Range RVDdMajor (2D) 3.1 cm (2.2 - 4.4) RAd ISD 4CH 5.8 cm (3.4 - 4.9) RA (A4C)W 3.3 cm (2.9 - 4.6) IVSd (2D) 1.1 cm (0.6 - 1) LVPWd (2D) 0.9 cm (0.6 - 1) LVIDd (2D) 3.8 cm (3.6 - 5.4) LVIDs (2D) 3.2 cm - LV FS (2D) 16 % (25 - 45) Aortic Annulus 2 cm (1.4 - 2.6) Ao root diameter (2D) 3.4 cm (2.1 - 3.5) Ascending Ao 2.8 cm (2.1 - 3.4) LA dimension (AP) 2D 3.5 cm (2.3 - 3.8) LAd ISD 4CH 5.6 cm (2.9 - 5.3) LA ISD 4CH W 3.9 cm (2.5 - 4.5) Name Value Normal Range LA ESV BP (A/L) index 28 ml/m2 - Name Value Normal Range MV E-wave Vmax 0.49 m/sec - MV deceleration time 335 msec - MV A-wave Vmax 0.72 m/sec - MV E:A ratio 0.7 ratio - LV septal e' Vmax 0.07 m/sec - LV lateral e' Vmax 0.07 m/sec - LV E:e' septal ratio 7 ratio - LV E:e' lateral ratio 7 ratio - Name Value Normal Range AV Vmax 1.2 m/sec - AV VTI 24.4 cm - AV peak gradient 5 mmHg - AV mean gradient 3 mmHg - LVOT Vmax 0.88 m/sec - LVOT VTI 15.9 cm - LVOT peak gradient 3 mmHg - LVOT mean gradient 2 mmHg - Name Value Normal Range PV Vmax 0.76 m/sec -
[2018-05-23 15:43] VITALS: BP 102/60
[2018-05-23 16:36] LABS: Urine Appearance Clear; Urine Bilirubin Negative (Negative); Urine Blood Negative (Negative); Urine Color Yellow; Urine Glucose Negative (Negative); Urine Ketones Trace (Negative); Urine Nitrite Negative (Negative); Urine Protein Negative (Negative); Urine Specific Gravity 1.016 (1.010-1.030); Urine Urobilinogen Negative (Negative)
--- NOTE | 2018-05-23 17:20 | PN ---
Progress Note - Progress Note Date of Service: 05/23/18 Note: I spoke to Darius's ([id number]) and she will have him return to the hospital to bring the patient home.
--- NOTE | 2018-05-23 20:19 | CONS ---
NEUROLOGY CONSULTATION: DATE OF CONSULT: 05/23/18 LOCATION: He is an inpatient in room 408. REFERRING PROVIDER: Janel Neal NP PRIMARY CARE PROVIDER: Dr. Louie. CHIEF COMPLAINT: Fall. HISTORY OF PRESENT ILLNESS: Cristhian Jennings is a 77-year-old man known to me from initial in-hospital evaluation in 2016 when I felt he had Parkinson disease. He had developed progressive difficulty walking. He responded to Sinemet to some extent. He presented yesterday when he fell at home. He lives with one of his sons. Two of his sons are present currently, but the one that he lives with is not here. One of them lives next door. They say that, his son heard him fall, but then he could not get him up. He denies loss of consciousness, but the patient is cognitively impaired. However, the son who came from next door said that he was conscious and at no point that anyone find him to be unresponsive. It took 2 men to get him back up again and they brought him into the emergency room to be evaluated. As part of his evaluation, he had an x-ray of his left shoulder because of shoulder pain, which interpreted as showing a nondisplaced fracture of the glenoid process of the scapula. Currently, he feels well and does not complain of any pain. We were asked to consult. PAST MEDICAL HISTORY: His past history is notable for parkinsonism, which is atypical. I thought he might have progressive supranuclear palsy as he has significant supranuclear gaze deficits. He has a history of coronary artery disease with stenting and bypass grafting, bilateral ankle injuries requiring surgery. He has a history of hypertension, hyperlipidemia. MEDICATIONS: At home consist of: 1. Sinemet 25/100 two tablets at 7 a.m. and 3 p.m. and one tablet at 11 a.m. and 7 p.m. 2. Lipitor 10 mg daily. 3. Metoprolol XL 150 mg p.o. daily. 4. Losartan 25 mg p.o. daily. 5. Aspirin 81 mg p.o. daily. 6. Naproxen 500 mg p.o. q.a.m. 7. Lasix 20 mg p.o. b.i.d. ALLERGIES: He is allergic to PENICILLIN. SOCIAL HISTORY: He is an ex-smoker. Does not drink alcohol. Lives with one of his sons. REVIEW OF SYSTEMS: Notable for chronic constipation. He denies headache or pain currently. He says his vision is "pretty good." No recent chest pain and denies shortness of breath. No recent intestinal issues. No recent weight loss. No fevers or chills. PHYSICAL EXAM: Temperature 97.2, heart rate in the 70s and regular. Respiratory rate is 24 and oxygen saturation is 95% on room air. Orthostatic blood pressure was obtained earlier this afternoon and lying it is 150/80, sitting 124/78, standing 102/60. Neurological Exam: He has grade 4 hypomimia. Eye movements are notable for marked decrease in volitional gaze and smooth pursuit. He is able to see fully to the right and left, but has to move his head to look down. He has absent upgaze. Speech is mildly dysarthric and hypophonic. On motor exam, he has diffuse cogwheel rigidity worse in the right arm and leg than the left. Strength is normal in the upper extremities, but he has mild hip flexor which is worse on the left. He is markedly bradykinetic. There is minimal low amplitude rest tremor in the left hand. Finger taps are very slow bilaterally and fairly symmetrically. He is a very poor historian, who tends to confabulate. He loses his train of thought easily. DIAGNOSTIC STUDIES/LAB DATA: Laboratory data includes a CT of the brain that was obtained on admission, which reveals atrophy only. Transthoracic echocardiogram interpreted as showing multiple regional wall motion abnormalities. There is decreased left ventricular function with estimated ejection fraction 40% to 45%. Additional laboratory studies notable for a CBC with a mild anemia yesterday, hemoglobin 12.7, chemistries from yesterday notable for a BUN of 34, creatinine 1.3 which came down to BUN 25 and creatinine 1.05 this morning. Chemistry profile is otherwise unremarkable. 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 He has autonomic insufficiency with orthostatic hypotension. However, the description is that of a fall, but not faint. He may have just gotten weak because of his significant drop in blood pressure. I would recommend backing off on some of his antihypertensive medications. They should block the head of his bed at home so that he sleeps at a tilt rather than fully supine. I will discuss with Dr. Kardon what would be the best choice, but I think that the losartan would probably the first thing to go. We may need to tolerate a certain amount of supine hypertension in order to compensate for his fairly severe orthostatic hypotension. [id number]/[facility] #: [id number] SUSANA
--- NOTE | 2018-05-23 20:59 | EEG ---
ELECTROENCEPHALOGRAPHY: DATE OF STUDY: 05/23/18 - ROOM #408 REFERRING PROVIDER: Janel Neal NP LOCATION: He is an inpatient on [address] CLINICAL PROBLEM: Episode of loss of consciousness with fall. The patient has a history of Parkinson disease. The patient is having memory problems. MEDICATIONS: Include: 1. Sinemet. 2. Heparin. 3. Lasix. 4. Lipitor. 5. Cozaar. 6. Toprol. 7. Apresoline. 8. Percocet. REPORT: This 16-channel EEG is remarkable for background rhythms consisting of an occipital rhythm of about 7 cycles per second, which is reasonably symmetric. There was central and bitemporal slowing. There are no activation procedures attempted. The patient drowses with vertex slowing and some sleep spindles periodically. There are no clinical events. There are no focal, lateralized, or epileptiform abnormalities. CLINICAL IMPRESSION: Mildly abnormal EEG due to mild generalized slowing of background rhythms. This tracing is compatible with mild diffuse cerebral dysfunction. There are no focal or epileptiform features to this recording. [id number]/[facility] [place] #: [id number] MTDD
--- NOTE | 2018-05-23 22:15 | DS ---
CC: Dr. Talbert; Dr. Louie * DISCHARGE SUMMARY: DATE OF ADMISSION: 05/22/18 DATE OF DISCHARGE: 05/23/18 HOSPITAL COURSE: The 77-year-old man who presented after a fall on the morning of 05/22/18. He put something in the microwave standing up. He was alone in the room and he fell over. His brother in the next room heard a noise and came in and found him on the floor. The patient was conscious. The patient himself has impaired memory and does not really recall what happened before he fell. He does not think he passed out, but is not really clear about this. He did not hit his head. He did not have any shaking or incontinence. He has had multiple falls in the past but not causing any injury. The patient was admitted. He had an upper extremity CT, abdomen and pelvis CT, shoulder x-ray. No significant injury was found. He had a CT of the brain and CT of the cervical spine. Dr. Talbert saw him in consultation and felt that the main problem was his orthostatic hypotension. His blood pressure fell from 150/80 to 102/60 unchanged from supine to standing position. He was not symptomatic at that time. Although the patient received all those medications in the hospital on discharge , he is going to omit the losartan. He will follow up with both Dr. Talbert and Dr. Louie. I note he had an EEG while in the hospital which showed no seizure activity. He had an echocardiogram, which showed an ejection fraction of 40% to 45% with multiple wall motion abnormalities. This is improved from the last echocardiogram in the hospital in 2004 with a markedly lower ejection fraction at that time. I do not think his clinical problems at this time are related to his heart disease. FINAL DIAGNOSES: 1. Orthostatic hypotension. 2. Parkinson's disease. 3. Coronary artery disease. DISCHARGE MEDICATIONS: 1. Atorvastatin 10 mg daily. 2. Metoprolol succinate 150 mg daily. 3. Polyethylene glycol 17 g daily p.r.n. 4. Aspirin 81 mg daily. 5. Carbidopa/levodopa 25/100 one tablet at 7 a.m., 11 a.m., 3 p.m. and 7 p.m. 6. Furosemide 20 mg once daily. This is a reduction from his dose of twice daily. 7. Naproxen 500 mg daily. DISPOSITION ON DISCHARGE: Discharge home. CONDITION ON DISCHARGE: Stable. [id number]/[facility] #: [id number] SUSANA
== END 2018-05-23 18:50 | disposition home or self-care (01) ==
LOC: ED 13:26 → MED 17:59
PROVIDERS: ADMIT Internal Medicine; ATTEND Internal Medicine
DX: I95.1 Orthostatic hypotension (principal); G20 Parkinson's disease; I25.10 Atherosclerotic heart disease of native coronary artery without angina pectoris; M25.511 Pain in right shoulder; Z79.82 Long term (current) use of aspirin; E78.5 Hyperlipidemia, unspecified; K59.00 Constipation, unspecified; Z95.5 Presence of coronary angioplasty implant and graft; Z87.891 Personal history of nicotine dependence; Z88.0 Allergy status to penicillin; Z91.81 History of falling
CPT/HCPCS: 36415; 70450; 71045; 72125; 74177; 80053; 81003; 82553; 83605; 83735; 83880; 84484; 85025; 85610; 85730; 93005; 93306; 95819; 96372; 99285; A9270-GY; G0378; G8978-GP-CJ; G8979-GP-CI; G8987-GO-CJ; G8988-GO-CI; J1644; Q9967

== ENCOUNTER 2018-09-27 13:55 | Emergency (ER) | payer MEDICARE, BC ==
--- NOTE | 2018-09-27 17:25 | ED ---
Adult Trauma - HPI Summary HPI Summary: 78-year-old male presents with 2 falls today. He states he ended up losing his balance and twisted his one ankle and then next time he twisted ankle other ankle. he did hit his head. He admits to neck pain and lower back pain. He states his hips may hurt. He denies any chest pain or shortness of breath. Denies any bowel pain. States he does have a little bit of left-sided rib pain from the fall. Denies any arm pain. Has a history of parkinsons and stumbles often. falls were mechanical falls. - History of Current Complaint Chief Complaint: EDFall Stated Complaint: FALL PER EMS Time Seen by Provider: 09/27/18 14:36 Pain Intensity: 2 - Additional Pertinent History Primary Care Physician: OSCAR - Allergy/Home Medications Allergies/Adverse Reactions: Allergies Allergy/AdvReac Type Severity Reaction Status Date / Time Penicillins Allergy Severe Hives Verified 07/07/17 12:43 PMH/Surg Hx/FS Hx/Imm Hx Endocrine/Hematology History: Denies: Hx Diabetes Cardiovascular History: Reports: Hx Coronary Artery Disease, Hx Hypercholesterolemia, Hx Hypertension Denies: Hx Congestive Heart Failure, Hx Pacemaker/ICD GI History: Reports: Other GI Disorders - constipation Musculoskeletal History: Reports: Hx Arthritis Sensory History: Reports: Hx Cataracts, Hx Contacts or Glasses Denies: Hx Eye Injury, Hx Hearing Aid Opthamlomology History: Reports: Hx Cataracts, Hx Contacts or Glasses Denies: Hx Eye Injury Psychiatric History: Denies: Hx Panic Disorder - Surgical History Surgery Procedure, Year, and Place: CORONARY STENT. Quadruple bypass surgery Hx Anesthesia Reactions: Yes Infectious Disease History: No Infectious Disease History: Denies: Traveled Outside the [place] in Last 30 Days - Family History Known Family History: Positive: Cardiac Disease, Diabetes - brother - Social History Alcohol Use: None Substance Use Type: Reports: None Hx Tobacco Use: No Smoking Status (MU): Never Smoked Tobacco Review of Systems Negative: Fever Negative: Chest Pain Negative: Shortness Of Breath Positive: Myalgia - neck pain, lower back pain, bilateral ankle pain Negative: Headache All Other Systems Reviewed And Are Negative: Yes Physical Exam Triage Information Reviewed: Yes Vital Signs On Initial Exam: Initial Vitals Temp Pulse Resp BP Pulse Ox 98.1 F 76 22 144/73 96 09/27/18 14:00 09/27/18 14:00 09/27/18 14:00 09/27/18 14:00 09/27/18 14:00 Vital Signs Reviewed: Yes Appearance: Positive: Well-Appearing Skin: Positive: Warm, Dry Head/Face: Positive: Normal Head/Face Inspection Eyes: Positive: Normal, EOMI, EDDIE, Conjunctiva Clear ENT: Positive: Normal ENT inspection, Pharynx normal, TMs normal Neck: Positive: Other: - nontender neck Respiratory/Lung Sounds: Positive: Clear to Auscultation, Breath Sounds Present , Other - tenderness lateral left ribs Cardiovascular: Positive: Normal, RRR Abdomen Description: Positive: Nontender, Soft Bowel Sounds: Positive: Present Musculoskeletal: Positive: Limited @ - ankle and feet, Other - tenderness over bilateral ankles and hips, tenderness hips Neurological: Positive: Sensory/Motor Intact, Alert, Oriented to Person Place, Time, CN Intact II-III Psychiatric: Positive: Normal - [place] Coma Scale Best Eye Response: 4 - Spontaneous Best Motor Response: 6 - Obeys Commands Best Verbal Response: 5 - Oriented Coma Scale Total: 15 Diagnostics - Vital Signs Vital Signs Temp Pulse Resp BP Pulse Ox 09/27/18 14:00 98.1 F 76 22 144/73 96 - Laboratory Lab Statement: Any lab studies that have been ordered have been reviewed, and results considered in the medical decision making process. - Radiology ankles Radiology Interpretation Completed By: ED Physician Summary of Radiographic Findings: no fracture foot Radiology Interpretation Completed By: ED Physician Summary of Radiographic Findings: no fracture hip Radiology Interpretation Completed By: ED Physician Summary of Radiographic Findings: no fracture ribs Radiology Interpretation Completed By: ED Physician Summary of Radiographic Findings: no fracture - CT brain CT Interpretation Completed By: Radiologist Summary of CT Findings: IMPRESSION: No intracranial mass or hemorrhage is noted neck CT Interpretation Completed By: Radiologist Summary of CT Findings: IMPRESSION: #. No CT evidence for traumatic cervical spine injury. #. No significant change in degenerative spondylosis and posterior element osteoarthritis. with associated multilevel significant osseous foraminal stenosis. lumbar CT Interpretation Completed By: Radiologist Summary of CT Findings: IMPRESSION: Multiple level degenerative disc disease is noted. No fracture is identified. Re-Evaluation - Re-Evaluation First Eval Change: Improved Comment: ambulated in ED Adult Trauma Course/Dx - Course Course Of Treatment: 78-year-old male presents with 2 falls today. He states he ended up losing his balance and twisted his one ankle and then next time he twisted ankle other ankle. he did hit his head. He admits to neck pain and lower back pain. He states his hips may hurt. He denies any chest pain or shortness of breath. Denies any bowel pain. States he does have a little bit of left-sided rib pain from the fall. Denies any arm pain. Has a history of parkinsons and stumbles often. falls were mechanical falls. On exam tenderness bilateral ankles. Tenderness lower back and neck. CT brain neck and spine show no fracture. xrays read by me as no fracture. gave gel splint and was able to ambulate in ED. told follow up with primary. family feels safe taking patient home as has brother cares for him and walker that used to using. patient understand and agrees with plan. - Diagnoses Differential Diagnosis/HQI/PQRI: Positive: Contusion(s), Fracture, Sprain Provider Diagnoses: Fall, Lower back pain, Neck pain, Bilateral ankle pain Discharge - Sign-Out/Discharge Documenting (check all that apply): Patient Departure Patient Received Moderate/Deep Sedation with Procedure: No - Discharge Plan Condition: Good Disposition: HOME Patient Education Materials: Ankle Sprain (ED), Back Pain (ED), Fall Prevention (ED) Referrals: Eric Louie MD [Primary Care Provider] - Additional Instructions: take tyenlol as needed for pain every 6 hours Follow up with primary ice, elevate use gel splint as tolerated on ankles Return to ED if develop any new or worsening symptoms - Billing Disposition and Condition Condition: GOOD Disposition: Home
[2018-09-27 18:36] VITALS: BP 133/80
[2018-09-27 18:43] LABS: Urine Appearance Clear; Urine Bacteria Absent (Absent); Urine Bilirubin Negative (Negative); Urine Blood 1+ (Negative); Urine Color Straw; Urine Glucose Negative (Negative); Urine Ketones Negative (Negative); Urine Nitrite Negative (Negative); Urine Protein Negative (Negative); Urine Red Blood Cell Trace(0-2/hpf) (Absent); Urine Urobilinogen Negative (Negative); Urine White Blood Cell Absent (Absent)
== END 2018-09-27 18:34 | disposition home or self-care (01) ==
LOC: ED 13:55
DX: M54.5 Low back pain (principal); M54.2 Cervicalgia; M25.571 Pain in right ankle and joints of right foot; M25.572 Pain in left ankle and joints of left foot; W19.XXXA Unspecified fall, initial encounter; Y92.9 Unspecified place or not applicable; G20 Parkinson's disease; I25.10 Atherosclerotic heart disease of native coronary artery without angina pectoris; E78.00 Pure hypercholesterolemia, unspecified; I10 Essential (primary) hypertension; Z95.5 Presence of coronary angioplasty implant and graft; Z88.0 Allergy status to penicillin; I73.9 Peripheral vascular disease, unspecified; M16.0 Bilateral primary osteoarthritis of hip; M25.752 Osteophyte, left hip; M25.751 Osteophyte, right hip; M47.892 Other spondylosis, cervical region; M51.36 Other intervertebral disc degeneration, lumbar region
CPT/HCPCS: 70450; 72125; 72131; 73523; 81003; 81015; 99282

== ENCOUNTER 2019-01-20 13:40 | Inpatient (IN) | payer MEDICARE, BC ==
--- OUTSIDE RECORDS SUMMARY | 2019-01-20 13:50 | XMS REPORT | Continuity of Care Document ---
:1940 External Reference #:[id number] Author Name Jonathan Zhao NP (transmitted by agent of provider Meghna Cagle) Address [address] [place] [address], [place] [address] Care Team Providers Name Role Phone Eric Louie MD - Internal Care Team Information Travel Agency Manager Medicine Problems Active Problems Provider Date Parkinson's disease Alex Talbert M.D. Onset: 03/01/2016 Cardiomyopathy, unspecified Devin Evans M.D., [facility], [facility] Onset: 2018 Syncope and collapse Devin Evans M.D., [facility], [facility] Onset: 06/12/2018 Difficulty breathing Devin Evans M.D., [facility], [facility] Onset: 06/12/2018 Social History Type Date Description Comments Sex Unknown ETOH Use Denies alcohol use Tobacco Use Start: Unknown End: Patient is a former Quit about 40 years Unknown smoker ago Recreational Drug Use Denies Drug Use Smoking Status Reviewed: 12/17/18 Patient is a former Quit about 40 years smoker ago Exercise Type/Frequency Does not exercise Allergies, Adverse Reactions, Alerts Active Allergies Reaction Severity Comments Date Penicillin Moderate 2018 Inactive Allergies NKDA 03/01/2016 Medications Active Medications SIG Qnty Indications Ordering Provider Date Metoprolol Succinate 3 by mouth Unknown ER daily 50mg Tablets ER 24HR Carbidopa-Levodopa 2 by mouth at 7 240tabs Alex Talbert, am, 11 am, 3 M.D. 25-100mg Tablets pm, and 7 pm Miralax 17 gm every day Unknown [id number] Packet as needed Aspirin Adult Low Dose 1 by mouth Unknown every day 81mg Tablets DR Tylenol 8 Hour as needed for Unknown 650mg pain Tablets ER Furosemide 1 by mouth Unknown 20mg Tablets every day Atorvastatin Calcium 1 by mouth Unknown 10mg every day Tablets Medications Administered in Office Medication SIG Qnty Indications Ordering Provider Date Inj, Regadenoson, 0.1 MG Devin Evans M.D., 07/08/2018 Injection J LUIS, DAY Technetium TC 99M Devin Evans M.D., 07/08/2018 Tetrofosmin, Per Unit Dose DAY DIETZ Up To 40 Millicuries Injection Technetium TC 99M Devin Evans M.D., 07/08/2018 Tetrofosmin, Per Unit Dose DAY DIETZ Up To 40 Millicuries Injection Immunizations Description No Information Available Vital Signs Date Vital Result Comment 12/17/2018 1:02pm Height 70 inches 5'10" Weight 220.00 lb Heart Rate 82 /min BP Systolic Sitting 130 mmHg BP Diastolic Sitting 84 mmHg Respiratory Rate 18 /min BMI (Body Mass Index) 31.6 kg/m2 08/09/2018 9:46am Height 70 inches 5'10" Weight 221.00 lb Heart Rate 72 /min regular BP Systolic Sitting 110 mmHg Ra Lartge Cuff BP Diastolic Sitting 82 mmHg Ra Lartge Cuff BP Systolic Standing 124 mmHg Ra Large Cuff BP Diastolic Standing 68 mmHg Ra Large Cuff Respiratory Rate 24 /min shallow resps. No resp difficulties Pain Level 0 O2 % BldC Oximetry 96 % BMI (Body Mass Index) 31.7 kg/m2 Results Description No Information Available Procedures Date Code Description Status 07/08/2018 30204 Stress Test Completed 07/08/2018 06483 Myocardial Perfusion Imaging Tomographic (Spect) Multiple Completed Studies 06/18/2018 32438 Mobile Cardiovascular Telemetry Over 24 HR Up To 30 Days Completed Medical Devices Description No Information Available Encounters Type Date Location Provider Dx Diagnosis Office Visit 08/09/2018 [facility]iology Services Devin Evans, R55 Syncope and 10:00a [facility] [place], DAY DIETZ collapse I42.9 Cardiomyopathy, unspecified Office Visit 06/18/2018 2:30p [place] [facility] Jonathan Zhao, G20 [facility] COLORER MACHINE disease Assessments Date Code Description Provider 12/17/2018 G20 Parkinson's disease Jonathan Knaake, COLORER MACHINE 08/09/2018 R55 Syncope and collapse Devin Evans M.D., [facility], [facility] 08/09/2018 I42.9 Cardiomyopathy, unspecified Devin Evans M.D., [facility] 07/08/2018 R06.00 Dyspnea, unspecified Devin Evans M.D., [facility] 06/18/2018 R55 Syncope and collapse Devin Evans M.D., [facility], [facility] 06/18/2018 G20 Parkinson's disease Jonathan Zhao NP Plan of Treatment Future Appointment(s):12/17/2019 10:00 am - Jonathan Zhao NP at [place] [facility]04/14/2019 10:00 am - Marcel Bullock MD at [facility]12/17/2018 - Jonathan Zhao NPG20 Parkinson's diseaseFollow up:ONE YEAR Functional Status Description No Information Available Mental Status Description No Information Available Referrals Refer to Reason for Referral Status Appt Date [facility] Physical therapy for impaired Sent 00/ 0000 mobility. [address] [place] [address] [phone]
--- NOTE | 2019-01-20 13:55 | ED ---
Neurological HPI - HPI Summary HPI Summary: Patient is a 78 y/o M w/ Hx of Parkinson's, HTN, CAD, HLD who presents to [facility] with complaints of right-sided weakness. Lavon moore was called on overhead at 1342, provider at bedside to evaluate immediately at this time. Patient had gone with his ukwzus-rs-zbk to physical therapy today, 01/20/19 at around 1130. At this time, the msbnxr-yy-eey had noticed new right-sided weakness. She states that the patient was last seen without this weakness on 01/18/19 in the afternoon. Therefore, the patient is not a TPA candidate. Physical therapist had stated that the patient's condition was "worse" and had recommended to the patient's family that the patient be evaluated in ED. Fever, chills, dysuria, cough, and recent sick contacts are denied. Patient is on Sinemet, Lasix, ASA, metoprolol, Lipitor, miralax. PSHx of quadrple bypass is reported. 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 Home medications and allergies are reviewed. - History of Current Complaint Stated Complaint: POSS STROKE PER PT Hx Obtained From: Patient Onset/Duration: Started hours ago - first noticed 01/20/19 1130, Still Present Neurological Deficit Location: RUE, RLE Character: Motor Weakness Aggravating: Nothing Alleviating: Nothing Associated Signs and Symptoms: Positive: Weakness - right sided - Additional Pertinent History Primary Care Physician: [id number] - Allergy/Home Medications Allergies/Adverse Reactions: Allergies Allergy/AdvReac Type Severity Reaction Status Date / Time Penicillins Allergy Severe Hives Verified 07/07/17 12:43 PMH/Surg Hx/FS Hx/Imm Hx Endocrine/Hematology History: Denies: Hx Diabetes Cardiovascular History: Reports: Hx Coronary Artery Disease, Hx Hypercholesterolemia, Hx Hypertension Denies: Hx Congestive Heart Failure, Hx Pacemaker/ICD GI History: Reports: Other GI Disorders - constipation Musculoskeletal History: Reports: Hx Arthritis Sensory History: Reports: Hx Cataracts, Hx Contacts or Glasses Denies: Hx Eye Injury, Hx Hearing Aid Opthamlomology History: Reports: Hx Cataracts, Hx Contacts or Glasses Denies: Hx Eye Injury Psychiatric History: Denies: Hx Panic Disorder - Surgical History Surgery Procedure, Year, and Place: CORONARY STENT. Quadruple bypass surgery Hx Anesthesia Reactions: Yes - Family History Known Family History: Positive: Cardiac Disease, Diabetes - brother - Social History Alcohol Use: None Substance Use Type: Reports: None Hx Tobacco Use: No Smoking Status (MU): Never Smoked Tobacco Review of Systems Negative: Fever, Chills Negative: Cough Negative: dysuria Positive: Weakness - right-sided All Other Systems Reviewed And Are Negative: Yes Physical Exam - Summary Physical Exam Summary: Constitutional: Well-developed, Well-nourished, Alert. (-) Distressed Skin: Warm, Dry HENT: Normocephalic; Atraumatic Eyes: Conjunctiva normal Neck: Musculoskeletal ROM normal neck. (-) JVD, (-) Stridor, (-) Tracheal deviation Cardio: Rhythm regular, rate normal, Heart sounds normal; Intact distal pulses; The pedal pulses are 2+ and symmetric. Radial pulses are 2+ and symmetric. (-) Murmur Pulmonary/Chest wall: Effort normal. (-) Respiratory distress, (-) Wheezes, (-) Rales Abd: Soft, (-) tenderness, (-) Distension, (-) Guarding, (-) Rebound Musculoskeletal: (-) Edema Lymph: (-) Cervical adenopathy Neuro: Alert, Oriented x3; Patient is capable of moving both sides. There is mild dysarthria, right-sided florinda-neglect, and right-sided dysmetria noted. GCS 15, NIHSS 3. Psych: Mood and affect Normal Triage Information Reviewed: Yes Vital Signs Reviewed: Yes - Yodit Coma Scale Best Eye Response: 4 - Spontaneous Best Motor Response: 6 - Obeys Commands Best Verbal Response: 5 - Oriented Coma Scale Total: 15 Procedures - Sedation Patient Received Moderate/Deep Sedation with Procedure: No Diagnostics - Laboratory Result Diagrams: 01/20/19 14:25 01/20/19 14:25 Lab Statement: Any lab studies that have been ordered have been reviewed, and results considered in the medical decision making process. - CT BRAIN CT CT Interpretation Completed By: Radiologist Summary of CT Findings: IMPRESSION: NO ACUTE INTRACRANIAL PATHOLOGY. THIS REPORT WAS REVIEWED BY ED PHYSICIAN. - EKG 1451 Cardiac Rate: NL - rate of 62 BPM EKG Rhythm: Sinus Rhythm Summary of EKG Findings: EKG showed NSR with rate of 62 BPM, prolonged IA, normal QRS, normal QTc, 1st degree AV block, normal ST-T. Nonspecific EKG. This EKG was reviewed and interpreted by ED physician. NIH Scale - NIH Scale Level of Consciousness: Alert/Keenly Responsive Ask Patient the Month and His/Her Age: Both Correct Ask Pt to Open/Close Eyes and Tactical Deception Plans Officer/Release Non-Paretic Hand: Both Correctly Best Gaze (Only Horizontal Eye Movement): Normal Visual Field Testing: No Visual Loss Facial Paresis-Pt to Smile & Close Eyes or Grimace Symmetry: Normal/Symmetrical Motor Function - Right Arm: No Drift-Holds 10 Seconds Motor Function - Left Arm: No Drift-Holds 10 Seconds Motor Function - Right Leg: No Drift-Holds 10 Seconds Motor Function - Left Leg: No Drift-Holds 10 Seconds Limb Ataxia-Must be out of Proportion to Weakness Present: Present in One Limb Sensory (Use Pinprick to Test Arms/Legs/Trunk/Face): Normal Best Language (Describe Picture, Name Items): No Aphasia Dysarthria (Read Several Words): Slurs Some Words Extinction and Inattention: Inattention Total Score: 3 Course/Dx - Course Course Of Treatment: Patient is a 78 y/o M w/ Hx of Parkinson's, HTN, CAD, HLD who presents to [facility] with complaints of right-sided weakness. Lavon moore was called on overhead at 1342, provider at bedside to evaluate immediately at this time. Patient had gone with his irfsst-lm-doq to physical therapy today, at around 1130. At this time, the dsbalu-yy-tit had noticed new right-sided weakness. She states that the patient was last seen without this weakness on 11/28 in the afternoon. Therefore, the patient is not a TPA candidate. Physical therapist had stated that the patient's condition was "worse" and had recommended to the patient's family that the patient be evaluated in ED. Neuro : Alert, Oriented x3; Patient is capable of moving both sides. There is mild dysarthria, right-sided florinda-neglect, and right-sided dysmetria noted. GCS 15, NIHSS 3. Dr. Evans recommends Brain CT, admission and then MRI. Bloodwork was obtained and WNL with exception of MCV 98, MCH 33, plt count 135, creatinine 1.19, glucose 137, total bilirubin 1.3, ALT 5, alk phos 107. Trop was negative. Ammonia was 48. EKG showed NSR with rate of 62 BPM, prolonged IA, normal QRS, normal QTc, 1st degree AV block, normal ST-T. Nonspecific EKG. BRAIN CT IMPRESSION: NO ACUTE INTRACRANIAL PATHOLOGY. 1534 - Patient's case was discussed with Dr. Mendoza, Dr. Mendoza accepts for admission. - Diagnoses Provider Diagnoses: Subacute neurologic deficit During the Visit The Following Alert/Code Occurred: Code Santos - Code moore was called on overhead at 1342, provider at bedside to evaluate immediately at this time. 1345 - Dr. Evans at bedside to evaluate the patient, NIHSS initiated. Dr. Evans recommends Brain CT, admission and then MRI. 1416 - Dr. Kerns calls to report negative Brain CT impression. - Physician Notifications Discussed Care Of Patient With: Joy Evans Time Discussed With Above Provider: 13:45 Instructed by Provider To: Other - 1345 - Dr. Evans at bedside to evaluate the patient, NIHSS initiated. Dr. Evans recommends Brain CT, admission and then MRI. 1416 - Dr. Kerns calls to report negative Brain CT impression. 1534 - Patient's case was discussed with Dr. Mendoza, Dr. Mendoza accepts for admission. Discharge ED - Sign-Out/Discharge Documenting (check all that apply): Patient Departure - admit - Discharge Plan Condition: Stable Disposition: ADMITTED TO [facility] - Billing Disposition and Condition Condition: STABLE Disposition: Admitted to [facility] - Attestation Statements Document Initiated by Jimmieibe: Yes Documenting Scribe: FREDI LEDBETTER Provider For Whom Scribe is Documenting (Include Credential): FATOUMATA SHEFFIELD MD Scribe Attestation: FREDI Owens scribed for FATOUMATA CARPENTER MD on 01/20/19 at 1734. Scribe Documentation Reviewed: Yes Provider Attestation: The documentation as recorded by the FREDI snowden accurately reflects the service I personally performed and the decisions made by me, FATOUMATA CARPENTER MD Status of Scribe Document: Viewed
[2019-01-20 14:39] LABS: ABS Eosinophils 0.1 10^3/ul (0-0.6); ABS Lymphocytes 1.3 10^3/ul (1.0-4.8); ABS Monocytes 0.4 10^3/ul (0-0.8); Eosinophil % 1.8 %; Hematocrit 42 % (42-52); Hemoglobin 14.1 g/dL (14.0-18.0); Lymphocyte % 21.6 %; Mean Corpuscular HGB Conc 34 g/dL (31-36); Mean Corpuscular Hemoglobin 33 pg (27-31); Mean Corpuscular Volume 98 fL (80-94); Mean Platelet Volume 7.5 fL (7.4-10.4); Nucleated Red Blood Cells % 0.2; Platelet Count 135 10^3/uL (150-450); Red Blood Count 4.27 10^6 /uL (4.18-5.48); Red Cell Distribution Width 15 % (10-15); White Blood Count 5.9 10^3/uL (3.5-10.8)
[2019-01-20 14:47] LABS: INR 1.04 (0.82-1.09)
[2019-01-20 14:57] LABS: Albumin 4.1 g/dL (3.2-5.2); Albumin/Globulin Ratio 1.5 (1-3); BUN/Creatinine Ratio 18.5 (8-20); EGFR African American 71.5 (>60); EGFR Non-African American 59.1 (>60); Globulin 2.8 g/dL (2-4); Total Bilirubin 1.3 mg/dL (0.2-1.0); Total Protein 6.9 g/dL (6.4-8.9)
--- NOTE | 2019-01-20 15:00 | CONSULT ---
Consult Consult: Neurology Inpatient Consult Note Date of service: 01/20/2019 Reason for consult: Neurology was consulted by Dr. Nieves by activated the code Romero to assess for stroke. The history was obtained by the patient and the patient's [id number]-rz-vgu who was at bedside. The patient's brother was also at bedside and he was the one to see the patient last on Sunday. . Chief complaint: Weakness History of Present Illness: Mr. Cristhian Jennings is a 78-year-old right-handed man with history of Parkinson's disease with dementia who was last seen by Jonathan Zhao on 12/17/2018 (Neurology provider). According to Jonathan, the patients sndnze-ug-pfy noticed that he had a right facial droop that started in November 2018. The family had declined further evaluation at that time and an MRI was not done. There were also complaints of gait imbalance. He is on Sinemet 25/100 mg two tablets four times a day. He was provided a script for physical therapy. Today, the patient was noted to have right arm and leg weakness. This was noticed by the ccmbcp-wj-apg at 11:30 a.m. on 01/20/2019. The patient was last seen well without any weakness on 01/18/2019 at 11:30 a.m. but the brother. The patient also has new slurred speech. The family reported new right facial weakness, but it was also to Jonathan in 12/2018. The patient has no acute complaints but feels fatigued. The therapist today recommended further evaluation by the ED as the patient "looks much different than he was in the past." NIHSS: 1-facial droop (most likely chronic), 1- dysarthria, and 1- right leg drift. Total NIHSS: 3. He is not a candidate for IV tPA or mechanical thrombectomy due to being outside the therapeutic window and he has a low NIHSS (Decision not to give tPA was made at 13:55. He denied any headaches, visual disturbance, neck pain, or paresthesia. Parkinson's history: The patient was diagnosed with Parkinson's disease/ Parkinsonism 3 years ago. Currently he is only on Sinemet, 800 mg of Levadopa a day. Without the Sinemet, his symptoms worsen, he becomes slow and tremors are apparent. His mobility also improved after starting physical therapy twice a day. He has intermittent episodes of hallucinations. He was telling his brother who was moving the laundry basket to not "fall over the dog." There was no dog in the house. He also has intermittent episodes of seeing spiders on his skin. This is an ongoing problem for the past three months, according to his brother. He has not had any sleep REM behavior disorder. Labs, Imaging and Other Diagnostics: WBC: 5.9 IMAGING: CT head without contrast completed on 01/20/2019: no acute intracranial disease. Past Medical History: Parkinsonism, CAD, hypertension, dyslipidemia Family History: No family history of stroke or seizures. Social History: He denied any alcohol or tobacco abuse. He is a former smoker. He lives with one of his brothers. Medications: Atorvastatin* [Lipitor 10 MG*] 10 mg PO DAILY 08/24/15 [History Confirmed ] Metoprolol Succinate XL TAB* [Toprol XL TAB*] 150 mg PO DAILY 08/24/15 [History Confirmed 01/20/19] Polyethylene Glycol 3350* [Miralax*] 17 gm PO DAILY PRN 01/19/16 [History Confirmed 01/20/19] Aspirin EC TAB* [Ecotrin EC Low Dose 81 MG*] 81 mg PO DAILY tab.ec 02/01/16 [ Rx Confirmed 01/20/19] Carbidopa/Levodop 25/100 MG(*) [Sinemet 25/100 TAB(*)] 1 tab PO 0700,1100,1500, 1900 07/20/16 [History Confirmed 01/20/19] Furosemide TAB* [Lasix TAB*] 20 mg PO DAILY #0 05/23/18 [Rx Confirmed 01/20/19] Allergies Penicillins Allergy (Severe, Verified 07/07/17 12:43) Hives Review of Systems: A 14-point ROS was obtained and otherwise negative except for what was mentioned in the HPI. Physical Exam: Vitals: Vital Signs - 12 hr Pulse Ox 01/20/19 14:20 95 General: well nourished, well developed. Alert, cooperative, no apparent distress, appears stated age. Head: normocephalic, without obvious abnormality Eyes: conjunctivae/corneas clear Neck: supple, symmetrical. No carotid bruit. No lymphadenopathy. Lungs: clear to auscultation bilaterally, non-labored CV: regular rhythm, S1, S2 normal, radial pulses palpable Extremities: normal range of motion with no cyanosis. Skin: no skin lesions or lacerations Psych: affect-broad and normal mood. Easy to establish rapport. Neurological examination: Mental status: awake; alert and oriented to person, place, time, & general circumstances; He has moderate dysarthria and hypophonia. Cranial nerves: I: not tested II, III, IV, : Pupils midrange and reactive to light, he does have restricted up and downgaze palsy. V 1/2/3: sensation is intact on forehead, cheeks, and jaw region VII: right facial droop VIII: able to hear throughout the history process IX & X: symmetric palatal elevation XI: normal strength against resistance XII: tongue is symmetrical & midline with no atrophy or fasciculations Motor (R/L): No clear pronator drift. Cogwheel rigidity bilaterally upper and lower extremities. Mild resting tremors. Moves all extremities antigravity but appears to be slightly weaker 4/5 on the right arm and leg. Reflexes: trace throughout, absent at the ankles. Sensation is intact to light touch throughout. Normal vibration and proprioception at the great toes. Coordination: normal finger to nose and rapid alternating movements. Gait & Station: narrow based; normal stance and gait. No ataxia. Assessment: Mr. Cristhian Jennings is a 78-year-old man with a history of Parkinson's disease with dementia, hypertension, dyslipidemia, who presented to [facility] after his therapist thought that he may be having a stroke. The patient presented with right sided weakness noticed by family at 11:30 a.m. He was last known well two days ago. 1. Acute right hemiparesis. Differential diagnosis includes a stroke to the left lenticulostriate branches. Other differential diagnosis such as cervical spine disease or progression of his Parkinson's disease in the setting of an infection or electrolyte abnormality should also be considered. 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 I agree with Dr. Talbert in the sense that this is not a pure Parkinson's disease syndrome given his rapid progression over the years. In the setting of vertical gaze palsy, Progressive supranuclear palsy (PSP) is also a consideration. What would be unusual is that he seems to be responding to Sinemet which goes against a PSP diagnosis. 3. Hypertension 4. Dyslipidemia Recommendations: - Admit to the hospitalist service for further evaluation - Start aspirin 81 mg and Plavix 75 mg daily - Continue atorvastatin 10 mg daily. If the LDL > 70, then increase the dose to 40 mg nightly - - MRI brain without contrast, MRA head and neck to evaluate for stroke and intracerebral stenosis - Obtain a 2D TTE with bubble study - Check B12 and TSH level - Restart the Sinemet 25/100 mg to take 2 tablets four times daily - Get him up OOB to chair 2 times a day - Start Azilect 0.5 mg daily to improve his gait - Consider Nuplazid therapy as an outpatient for the psychosis - PT/OT/PRINTING ROLLER POLISHER evaluate and treat - VTE prophylaxis: PCD/SCDs - There is no indication for anticoagulation therapy - Once the diagnosis is clear, stroke education will be implemented. Neurology will continue to follow. Discussed the above recommendations with Dr. Nieves. Joy Evans MD
[2019-01-20] MEDS ORDERED: Clopidogrel TAB* 75 MG PO ONE (16:03)
[2019-01-20] MEDS ORDERED: Aspirin 81 mg CHEW TAB* 81 MG TAB.CHEW PO ONE (16:03)
[2019-01-20] MEDS: Carbidopa/Levodop 25/100 MG TAB(*) PO SCH ×3 (16:19→21:04)
[2019-01-20 16:51] LABS: HDL Cholesterol 29.4 mg/dL
[2019-01-20 17:48] LABS: TSH (Thyroid Stimulating Horm) 3.43 mcIU/mL (0.34-5.60)
--- NOTE | 2019-01-20 18:38 | HP ---
HISTORY AND PHYSICAL: DATE OF ADMISSION: 01/20/19 PRIMARY CARE PROVIDER: Eric Louie MD. ATTENDING PHYSICIAN: Bc Mendoza MD * (dictated by SHANNON Dorado). CHIEF COMPLAINT: Right hemiparesis. HISTORY OF PRESENT ILLNESS/HOSPITAL COURSE: Mr. 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 The patient is an unreliable historian and is often confused and cannot give any details about today's event. His brother who relays most of the information is present at the patient's bedside. His brother states that the patient was working with Physical Therapy and became weak and could not stand. He became dizzy. There was no loss of consciousness or fall. The physical therapist noticed that he was weak on the right side. The patient's sister-in- law was waiting in the car and was brought inside to discuss this incident. It was recommended that the patient come to the ER. Mr. Jennings was brought to the car and it took several people to help get him into the car. Typically, he does walk on his own or uses a walker. He does have a history of falling, but does not fall frequently, falls less than once monthly. The patient denies vision changes, dysphagia, dysarthria. He does complain of occasional dizziness and lightheadedness with standing. The patient's brother states that he feels that the patient's voice is quieter than normal, but that there is no slurred speech. He feels that the face appears to be drooping somewhat. The patient does not feel that he has cited weakness, but does admit to generalized weakness. In the ER, the patient received a full workup including lab work revealing a platelet count of 135. A brain CT was performed and showed no acute intracranial pathology. EKG shows a rate of 62 with a mildly prolonged TX interval. There are no noted ST changes. The patient was given aspirin 81 mg, clopidogrel 75 mg, and his regular dose of carbidopa/levodopa. The hospitalist team was asked to evaluate the patient for admission. PAST MEDICAL HISTORY: 1. Systolic and diastolic heart failure with ejection fraction of 40% to 45%. 2. CAD, status post CABG. 3. Hypertension. 4. Hyperlipidemia. 5. Parkinson disease with frequent falls and gait dysfunction. 6. Dementia. 7. Osteoarthritis. 8. Chronic constipation. PAST SURGICAL HISTORY: Four vessel CABG; bilateral ankle surgery, status post work injury. HOME MEDICATIONS: 1. Aspirin 81 mg p.o. daily. 2. Atorvastatin 10 mg p.o. daily. 3. Carbidopa/levodopa 25/100 two tabs p.o. at 0700, 1100, 1500, 1900. 4. Furosemide 20 mg p.o. daily. 5. Metoprolol succinate XL 150 mg p.o. daily. 6. Polyethylene glycol 17 g p.o. daily p.r.n. constipation. DRUG ALLERGIES: PENICILLIN, hives. FAMILY HISTORY: Mother of an IA. Father of prostate cancer. The patient has siblings with coronary artery disease. SOCIAL HISTORY: The patient is a former smoker. He smoked a pipe and cigars for about 10 years. He then started using chewing tobacco for approximately 40 years. He has since quit. He quit using alcohol at the age of 28. He lives with one of his brothers. In the event that he is unable to make his own medical decisions, he has appointed his youngest brother Junaid Jennings to be his surrogate decision maker. REVIEW OF SYSTEMS: A 14-point review of systems has been performed and all the pertinent positives and negatives are in the HPI, all other systems are negative. PHYSICAL EXAMINATION GENERAL: Mr. Jennings is an older obese white male who is sitting up in bed. He is pleasantly confused. He appears comfortable and in no acute distress. HEENT: There appears to be a slight left lower facial droop. PERRL. EOMI. Sclerae nonicteric. Hearing is grossly intact. Oral mucous membranes are moist. There are no lesions. The tongue is at midline. The pharynx is clear. PULMONARY: Symmetrical chest expansion without use of accessory muscles. Clear to auscultation anteriorly without rhonchi, wheezes, or rubs. CARDIOVASCULAR: Regular rate and rhythm with S1, S2 present without murmurs, rubs, clicks, or gallops. Trace bilateral lower extremity edema. ABDOMEN: Obese. Bowel sounds in all quadrants, soft, nontender to palpation. MUSCULOSKELETAL: Full range of motion without pain or deformities. NEURO: The patient is awake. He is alert and oriented to person and place. The patient appears to have a very mild left lower facial droop. He is unable to follow instructions for assessment of facial motor function. Otherwise, cranial nerves grossly intact. The patient appears to have mildly decreased right arm elbow extension strength when compared to the left arm, but both are 5 /5 strength, bilateral lower extremities 5/5, mortgage broker strength is equal. DIAGNOSTIC STUDIES/LAB DATA: Platelets 135. No overt abnormalities on CMP. LDL 49. B12 of 315. ECG, rate 62, mildly prolonged PARAMJIT. No ST changes. CT brain, impression: No acute intracranial pathology. ASSESSMENT AND PLAN: Mr. Jennings is a 78-year-old male with a past medical history of heart failure, reduced ejection fraction, coronary artery disease, hypertension, hyperlipidemia, Parkinson disease, and dementia, who presented to the ER today with reports of right hemiparesis. The patient will be admitted for: 1. Right hemiparesis. The patient has a history of Parkinson disease, which could be contributing. This could have also represented cerebrovascular accident/transient ischemic attack. It appears that the patient continues to have a very very mild strength difference only with right arm elbow extension less than left arm elbow extension. Otherwise, the patient appears to be intact. CT is within normal limits. We will obtain a transthoracic echocardiogram in the morning. MRI of the brain and MRA of the head and neck will be ordered. We will continue aspirin 81 mg p.o. daily, Plavix 75 mg p.o. daily. Neuro checks q.4 hours. Hemoglobin A1c and lipid panel will be ordered. PT/OT and speech therapy will be ordered. Neurology has been consulted and recommended starting Azilect 0.5 mg daily for gait abnormalities. 2. Parkinson disease. Continue the patient's home medications carbidopa/ levodopa. We will add Azilect 0.5 mg daily for gait improvement. Neurology recommends consideration of Nuplazid therapy outpatient for psychosis. 3. Heart failure. Continue home medications, metoprolol and furosemide. 4. Hypertension. Continue home medications, metoprolol and furosemide. 5. Hyperlipidemia. Continue statin. 6. DVT prophylaxis: SCDs. 7. Code status: Full code. TIME SPENT: Approximately 60 minutes were spent on this admission, greater than half that time was spent pqui-ei-vube with the patient and his brother obtaining history, performing physical, and reviewing the plan of care. The case has been reviewed with my attending Dr. Mendoza, who is in agreement with the plan of care. SHANNON DORADO [id number]/[facility] #: [id number] SUSANA
[2019-01-20 21:23] LABS: Urine Appearance Clear; Urine Bilirubin Negative (Negative); Urine Blood Negative (Negative); Urine Color Yellow; Urine Glucose Negative (Negative); Urine Ketones Trace (Negative); Urine Nitrite Negative (Negative); Urine Protein Negative (Negative); Urine Urobilinogen Negative (Negative)
[2019-01-20] MEDS ORDERED: Heparin VIAL(*) 5000 UNITS/ML VIAL (FIVE THOUSAND) SUBCUT SCH (22:00)
[2019-01-21] MEDS: Acetaminophen TAB* 325 MG PO PRN ×2 (04:36→14:43)
[2019-01-21 06:11] LABS: BUN/Creatinine Ratio 18.8 (8-20); EGFR African American 86.4 (>60); EGFR Non-African American 71.4 (>60); Magnesium 2.1 mg/dL (1.9-2.7); Potassium 3.9 mmol/L (3.5-5.0)
[2019-01-21] MEDS: Carbidopa/Levodop 25/100 MG TAB(*) PO SCH ×5 (08:41→20:46)
[2019-01-21] MEDS: Aspirin EC TAB* 81 MG TAB.EC PO SCH (08:43)
[2019-01-21] MEDS: Clopidogrel TAB* 75 MG PO SCH (08:43)
[2019-01-21] MEDS: Atorvastatin* 10 MG TAB PO SCH (08:43)
[2019-01-21] MEDS: Furosemide TAB* 20 MG PO SCH (09:20)
[2019-01-21] MEDS: RASAGILINE 1 MG PO SCH (09:20)
[2019-01-21] MEDS: Metoprolol Succinate XL TAB* 50 MG PO SCH (09:21)
--- NOTE | 2019-01-21 09:23 | PN ---
Subjective Date of Service: 01/21/19 Interval History: Mr. Jennings states that he is "not very good." He c/o R shoulder pain. He states that he has had this for some time, and has been working with 2 different doctors and has also been working with PT. He has had x-rays in the past, but notes that he has had a fall since then, "the other night." He denies R sided weakness. He has no other complaints today. Objective Active Medications: Acetaminophen (Tylenol Tab*) 650 mg PO Q4H PRN PRN Reason: mild to moderate pain Last Admin: 01/21/19 04:36 Dose: 650 mg Aspirin (Aspirin Ec Tab*) 81 mg PO DAILY [facility] Last Admin: 01/21/19 08:43 Dose: 81 mg Atorvastatin Calcium (Lipitor*) 10 mg PO DAILY [facility] Last Admin: 01/21/19 08:43 Dose: 10 mg Carbidopa/Levodopa (Sinemet 25/100 Tab(*)) 2 tab PO QID [facility] Last Admin: 01/21/19 08:44 Dose: 2 tab Clopidogrel Bisulfate (Plavix Tab*) 75 mg PO DAILY [facility] Last Admin: 01/21/19 08:43 Dose: 75 mg Furosemide (Lasix Tab*) 20 mg PO DAILY [facility] Metoprolol Succinate (Toprol Xl Tab*) 150 mg PO DAILY [facility] Polyethylene Glycol/Electrolytes (Miralax*) 17 gm PO DAILY PRN PRN Reason: CONSTIPATION Rasagiline (Azilect (Nf)) 0.5 mg PO DAILY [facility] Vital Signs: Temp Pulse Resp BP Pulse Ox 97.7 F 73 20 132/90 96 01/21/19 11:25 01/21/19 11:25 01/21/19 11:25 01/21/19 11:25 01/21/19 11:25 Oxygen Devices in Use Now: Nasal Cannula Appearance: Mr. Jennings is an obese older white male who is sitting up in bed; he appears to have a R facial droop. He appears comfortable, in no acute distress, but he has difficulty with movement. Eyes: No Scleral Icterus, PERRLA Ears/Nose/Mouth/Throat: NL Teeth, Lips, Gums, Clear Oropharnyx, Mucous Membranes Moist, - - R facial droop Neck: NL Appearance and Movements; NL JVP, Trachea Midline Respiratory: Symmetrical Chest Expansion and Respiratory Effort, Clear to Auscultation - unable to follow instructions for deep breathing Cardiovascular: NL Sounds; No Murmurs; No JVD, RRR, No Edema Abdominal: NL Sounds; No Tenderness; No Distention, - - Obese Extremities: No Edema, No Clubbing, Cyanosis, - - Low back pain with RLE hip extension; CN: R facial droop; unable to follow instructions for smile/frown/ etc.; CN otherwise intact Neurological: NL Muscle Strength and Tone, - - Alert. Oriented to person, place. Result Diagrams: 01/20/19 14:25 01/21/19 05:28 Assess/Plan/Problems-Billing Assessment: 78yom PMHx systolic and diastolic HF, CAD s/p CABG, HTN, HLD, PD, dementia presents with R hemiparesis. - Patient Problems (1) Right hemiparesis Comment: -pt presents with R hemiparesis, R facial droop -CT head without intracranial abnormalities -MRI head limited with no suggestion of infarct -MRA head, neck ordered, but unable to be performed d/t kyphosis -Echo with negative buble study -Neurology consulted; thank you for recommendations -Aspirin, Plavix -LD controlled at 49; continue current statin dose -HA1c mildly elevated -B12, TSH WNL -PT/OT/ST (2) Right shoulder pain Comment: -c/o R shoulder pain that appears to be chronic -imaging from 05/2018 shows possible nondisplaced fx of glenoid process of scap -pt has been working with PT, but this appears to be for PD -will repeat imaging in setting of decreased ROM and reported recent fall (3) Parkinson disease Comment: -continue sinamet -add Azilect per neuro recommendations (4) Heart failure Comment: -Echo: EF 40-45%, grade 2 distolic dysfunction; little change from previous study -continue home metoprolol, furosemide (5) Hypertension Comment: -fair control -continue furosemide, metoprolol (6) Hyperlipidemia Comment: -LDL controlled at 49 -continue home statin (7) Dementia Comment: -supportive therapy -neuro recommends consideration of Nuplazid outpatient (8) DVT prophylaxis Comment: -SCDs (9) Full code status Status and Disposition: Inpatient. Discharge when stable.
--- NOTE | 2019-01-21 12:46 | ECHO ---
*[facility]* [place] [address] Fax #: [phone] Transthoracic Echocardiogram Patient: Cristhian Jennings : 1940 Study Date: 01/21/2019 Age: 78 Gender: M HR: 71 bpm Height: 69 in /175.3 cm BSA: 2.21 m^2 Weight: 234.5 lb /106.6 kg BMI: 34.7 kg/m^2 *Punch Machine Operator: * Su Rhodes RDCS RN *Referring Physician: * Nisreen BustamanteReading Physician: * Dereje Lassiter MD Indications: TIA. History: Coronary artery disease with CABG and coronary stents. Parkinson's disease. Risk factors: Former tobacco use. Hypertension. Obese. Dyslipidemia. Conclusions Summary: - Left ventricle: Systolic function is mildly to moderately reduced. The estimated ejection fraction is 40-45%. Hypokinesis of the basalinferoseptal myocardium. Hypokinesis of the basal-midinferior myocardium. - Right ventricle: Systolic function is normal. - Mitral valve: There is trace to mild regurgitation. - Aortic valve: There is no evidence of stenosis. There is mild regurgitation. - Tricuspid valve: There is no significant regurgitation. - Pulmonary arteries: Systolic pressure can not be accurately estimated. - Compared to study of 05/23/18, there is little change. Study data: Transthoracic echocardiogram. Procedure: Transthoracic echocardiography was performed. Image quality was fair. The study was technically limited due to body habitus and Smoking history. A bubble study was performed using agitated normal saline on Images 1 and 2. Complete 2D, spectral Doppler, and color flow Doppler. Location: Bedside. Patient status: Inpatient. Patient room number: 447-02. Rhythm: Normal sinus rhythm. Findings Left ventricle: The cavity size is normal. Wall thickness is normal. Systolic function is mildly to moderately reduced. The estimated ejection fraction is 40-45%. Regional wall motion abnormalities: Hypokinesis of the basalinferoseptal myocardium. Hypokinesis of the basal-midinferior myocardium. Doppler parameters are consistent with abnormal left ventricular relaxation (grade 1 diastolic dysfunction). Right ventricle: The cavity size is normal. Systolic function is normal. Ventricular septum: Ventricular septal wall motion has a postoperative appearance. Left atrium: The atrium is normal in size. Right atrium: The atrium is normal in size. Atrial septum: No defect or patent foramen ovale is identified. Effort for cough was suboptimal. Bubble study was negative. Images 1 and 2. Mitral valve: The leaflets are mildly thickened. There is no evidence of stenosis. There is trace to mild regurgitation. Aortic valve: Not well visualized. The leaflets are mildly thickened. There is no evidence of stenosis. There is mild regurgitation. Tricuspid valve: Not well visualized. There is no significant regurgitation. Pulmonic valve: Not well visualized. Aorta: Aortic root: The aortic root is not dilated. Ascending aorta: The ascending aorta is not dilated. Aortic arch: The aortic arch is not visualized. Pericardium: There is no pericardial effusion. Pulmonary arteries: Not well visualized. Systolic pressure can not be accurately estimated. Systemic veins: Inferior vena cava: Not visualized. Measurements Left ventricle Value Ref Right atrium Value Ref GERALDINE, LAX 4.9 cm 4.2 - 5.8 ML dim, ES, A4C 3.3 cm 2.6 - 4.4 ESD, LAX 3.7 cm 2.5 - 4.0 SI dim, ES, A4C (H) 5.4 cm 3.4 - 5.3 FS, LAX (L) 24 % 25 - 43 PW, ED 1.0 cm 0.6 - 1.0 Aortic valve Value Ref IVS/PW, ED 0.98 Krissy diam, ED 2.2 cm --------- Qs 3.7 L/min Peak v, S 1.09 m/sec --------- E', lat krissy, TDI (L) 8.8 cm/sec >=10.0 VTI, S 24.1 cm --- ------ E/e', lat krissy, 8 Mean grad, S 3.0 mm Hg ------ --- TDI Peak grad, S 5.0 mm Hg --------- E', med krissy, TDI (L) 5.2 cm/sec >=7.0 LVOT/AV, VTI ratio 0.85 --- ------ E/e', med krissy, 13 TDI Mitral valve Value Ref E', avg, TDI 7.0 cm/sec Peak E 0.69 m/sec ------ --- E/e', avg, TDI 10 <=14 Peak A 0.98 m/sec --- ------ Decel time 189 ms --------- LVOT Value Ref Peak E/A ratio 0.7 --------- Peak corwin, S 0.9 m/sec VTI, S 20.5 cm Pulmonic valve Value Ref Mean grad, S 2 mm Hg Peak v, S 0.68 m/sec --------- Peak grad, S 2.0 mm Hg --------- Ventricular septum Value Ref IVS, ED 1.0 cm 0.6 - 1.0 Aortic root Value Ref Root diam 2.8 cm <4.3 Right ventricle Value Ref GERALDINE minor ax, 2.9 cm 1.9 - 3.5 Ascending aorta Value Ref A4C mid AAo AP diam, S 2.8 cm --------- Left atrium Value Ref AP dim, ES 3.50 cm 3.00 - 4.00 ML dim, A4C 3.7 cm SI dim, A4C 5.5 cm Vol/bsa, ES, 1-p 23 ml/m^2 12 - 37 A4C Vol/bsa, ES, A/L 26 ml/m^2 16 - 34 Legend: (L) and (H) camron values outside specified reference range. Prepared and electronically signed by Dereje Lassiter MD 01/21/2019 12:46
--- NOTE | 2019-01-21 16:31 | PN ---
Subjective Date of Service: 01/21/19 Length of Stay: 1 Days Neurology is following for the patient's right sided weakness. Interval History: He is still not feeling well. He has fatigue, right shoulder pain and trouble ambulating. He still has a mild right facial droop which is not related to a central problem and reduced effort on the right arm and leg. Azilect was started yesterday. He seems to be tolerating the low dose. There have been no symptoms of hallucinations. Labs and imaging studies: Urinalysis is negative for pyuria. B12 is 315 and TSH is 3.43. Ammonia level is 48. MRI brain without contrast was limited due to motion artifact. The study showed no area of restricted diffusion to suggest stroke. He's too kyphotic to get a cervical spine or MRA of the neck. 2D TTE: mildly to moderately reduced systolic function. EF 40-45%. Hypokinesis of the basalinferioroseptal myocardium. Negative bubble study. Review of Systems: Denied CP, SOB, or palpitations. Objective Active Medications: Acetaminophen (Tylenol Tab*) 650 mg PO Q4H PRN PRN Reason: mild to moderate pain Last Admin: 01/21/19 14:43 Dose: 650 mg Aspirin (Aspirin Ec Tab*) 81 mg PO DAILY [facility] Last Admin: 01/21/19 08:43 Dose: 81 mg Atorvastatin Calcium (Lipitor*) 10 mg PO DAILY [facility] Last Admin: 01/21/19 08:43 Dose: 10 mg Carbidopa/Levodopa (Sinemet 25/100 Tab(*)) 2 tab PO QID [facility] Last Admin: 01/21/19 13:15 Dose: 2 tab Clopidogrel Bisulfate (Plavix Tab*) 75 mg PO DAILY [facility] Last Admin: 01/21/19 08:43 Dose: 75 mg Furosemide (Lasix Tab*) 20 mg PO DAILY [facility] Last Admin: 01/21/19 09:20 Dose: Not Given Metoprolol Succinate (Toprol Xl Tab*) 150 mg PO DAILY [facility] Last Admin: 01/21/19 09:21 Dose: Not Given Polyethylene Glycol/Electrolytes (Miralax*) 17 gm PO DAILY PRN PRN Reason: CONSTIPATION Rasagiline (Azilect (Nf)) 0.5 mg PO DAILY [facility] Last Admin: 01/21/19 09:20 Dose: 0.5 mg Vital Signs 01/21/19 01/21/19 11:25 15:22 Temperature 97.7 F 97.4 F Pulse Rate 73 71 Respiratory 20 20 Rate Blood Pressure 132/90 121/67 (mmHg) O2 Sat by Pulse 96 95 Oximetry Intake and Output Last 24 Hours 01/19/19 01/20/19 01/21/19 01/22/19 06:59 06:59 06:59 06:59 Intake Total 0 600 Output Total 0 0 Balance 0 600 Weight 226 lb Intake: Oral 0 600 Output: Urine 0 0 Other: # Voids 0 Oxygen Devices in Use Now: Nasal Cannula Neurology Exam: General: Chronic ill appearing man in no distress. Resting in bed comfortably. He did not have breakfast yet. HEENT: Normocephelic/atraumatic, sclera anicteric, mucous membranes moist Neck: Supple Chest: Clear to auscultation bilaterally Cardiovascular: Regular rate and rhythm without murmurs, rubs, gallops Extremities: No clubbing, cyanosis, or edema Neurological Findings: Awake, alert, and oriented to person, place, and time. Speech: dysarthria and hypophonia Cranial Nerve: PERRL, restricted movements of vertical gaze. Minimal fluctuating right facial droop. Masked facies. Motor: 4+/5 on the right and 5/5 on the left. Significant cogwheel rigidity of the upper and lower extremities bilaterally. Pain in the right shoulder with arm elevation. Sensation: intact to LT/PP bilaterally upper and lower extremities Deep Tendon Reflex: 1+ throughout, absent at the ankles. Finger to nose, rapid alternating movements intact without tremor, no dysdiadochokinesia Gait: not assessed due to his generalized fatigue/malaise Result Diagrams: 01/20/19 14:25 01/21/19 05:28 Assessment/Plan Mr. Cristhian Jennings is a 78-year-old man with history of Parkinson's Disease dementia and psychosis who presented to [facility] on 01/20/2019 with an acute- subacute right hemiparesis and gait instability. The right facial droop was chronic. The patient was hospitalized for stroke but the MRI brain, albeit limited due to motion, was negative for acute stroke. 1. Right hemiparesis and gait instability. The patient cannot have an MRI of the cervical spine due to severe kyphosis. He will need an open MRI as an outpatient. I don't think this is a TIA since he continues to have minimal deficit on the right. I have a suspicion that the limited movement of the right arm is related to rotator cuff injury on the right and the limited movement of the right leg is due to degenerative disc of the lumbar spine. Recommendation: acute rehabilitation. Further evaluation for degenerative disc disease of the spine can be done as an outpatient. The patient will unlikely be a great candidate for surgery given his underlying degenerative disorder. We ruled out any vitamin B12 deficiency, UTI, and stroke. Switch aspirin to Plavix. I don't think he needs DAPT since his presentation is unlikely to be vascular related. 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 His progression is concerning for a parkinsonism syndrome like progressive supranuclear palsy instead of Parkinson's disease. Defer further outpatient evaluation. I started him on low dose Azilect to hopefully help improve his gait. Continue Sinemet 25/100 to take 2 tablets PO four times a day. I will continue to follow.
[2019-01-21] MEDS ORDERED: NS 0.9% 500 ML* 500 ML IV ONE (16:35)
[2019-01-22] MEDS: Furosemide TAB* 20 MG PO SCH (08:22)
[2019-01-22] MEDS: Carbidopa/Levodop 25/100 MG TAB(*) PO SCH ×4 (08:22→22:21)
[2019-01-22] MEDS: Clopidogrel TAB* 75 MG PO SCH (08:22)
[2019-01-22] MEDS: Metoprolol Succinate XL TAB* 50 MG PO SCH (08:22)
[2019-01-22] MEDS: Aspirin EC TAB* 81 MG TAB.EC PO SCH (08:22)
[2019-01-22] MEDS: Atorvastatin* 10 MG TAB PO SCH (08:22)
[2019-01-22] MEDS: Acetaminophen TAB* 325 MG PO PRN (08:22)
[2019-01-22] MEDS: Polyethylene Glycol 3350* 17 GM PACKET PO PRN (08:22)
[2019-01-22] MEDS: RASAGILINE 1 MG PO SCH (08:51)
--- NOTE | 2019-01-22 13:56 | PN ---
Subjective Date of Service: 01/22/19 Interval History: Ms. Jennings states he "feels pretty good." He states that b/l shoulders are non- painful and he does not feel week. He does not want to go to [facility]; he states this is because his insurance won't cover it; explained that it would, and he says insurance won't cover it- he appears mildly confused. No complaints today. Objective Active Medications: Acetaminophen (Tylenol Tab*) 650 mg PO Q4H PRN PRN Reason: mild to moderate pain Last Admin: 01/22/19 08:22 Dose: 650 mg Aspirin (Aspirin Ec Tab*) [address] [facility] Last Admin: 01/22/19 08:22 Dose: 81 mg Atorvastatin Calcium (Lipitor*) [address] [facility] Last Admin: 01/22/19 08:22 Dose: 10 mg Carbidopa/Levodopa (Sinemet 25/100 Tab(*)) [address] [facility] Last Admin: 01/22/19 12:53 Dose: 2 tab Clopidogrel Bisulfate (Plavix Tab*) [address] [facility] Last Admin: 01/22/19 08:22 Dose: 75 mg Furosemide (Lasix Tab*) [address] [facility] Last Admin: 01/22/19 08:22 Dose: 20 mg Influenza Virus Vaccine (Fluarix Quad [id number] Syr) 0.5 ml IM .ONCE ONE Stop: 01/23/19 09:01 Metoprolol Succinate (Toprol Xl Tab*) [address] [facility] Last Admin: 01/22/19 08:22 Dose: 150 mg Polyethylene Glycol/Electrolytes (Miralax*) 17 gm PO DAILY PRN PRN Reason: CONSTIPATION Last Admin: 01/22/19 08:22 Dose: 17 gm Rasagiline (Azilect (Nf)) 0.[address] [facility] Last Admin: 01/22/19 08:51 Dose: 0.5 mg Vital Signs: Temp Pulse Resp BP Pulse Ox 97.4 F 72 20 139/71 96 01/22/19 11:15 01/22/19 11:15 01/22/19 11:15 01/22/19 11:15 01/22/19 11:15 Oxygen Devices in Use Now: None Appearance: Mr. Jennings is an obese older white male who is sitting up in bed, in no acute distress. He is mildly confused. He is in no acute distress. Ears/Nose/Mouth/Throat: NL Teeth, Lips, Gums, Clear Oropharnyx, Mucous Membranes Moist, - - R facial droop Neck: NL Appearance and Movements; NL JVP, Trachea Midline Respiratory: Symmetrical Chest Expansion and Respiratory Effort, Clear to Auscultation - Unable to follow instructions for deep breathing Cardiovascular: NL Sounds; No Murmurs; No JVD, RRR, No Edema Abdominal: NL Sounds; No Tenderness; No Distention, No Hepatosplenomegaly Extremities: No Edema, No Clubbing, Cyanosis Neurological: Alert and Oriented x 3, NL Muscle Strength and Tone Result Diagrams: 01/20/19 14:25 01/21/19 05:28 Assess/Plan/Problems-Billing Assessment: 78yom PMHx systolic and diastolic HF, CAD s/p CABG, HTN, HLD, PD, dementia presents with R hemiparesis. - Patient Problems (1) Right hemiparesis Comment: -pt presents with R hemiparesis, R facial droop -CT head without intracranial abnormalities -MRI head limited with no suggestion of infarct -MRA head, neck ordered, but unable to be performed d/t kyphosis -US carotids R internal 50-69% stenosis, L internal < 50% -Echo with negative buble study -Neurology consulted; thank you for recommendations -Plavix only per neuro -LDL controlled at 49; continue current statin dose -HA1c mildly elevated -B12, TSH WNL -PT/OT/ST (2) Right shoulder pain Comment: -c/o R shoulder pain that appears to be chronic -imaging from 05/2018 shows possible nondisplaced fx of glenoid process of scap -pt has been working with PT, but this appears to be for PD -R shoulder OA glenohumeral, AC jts (3) Parkinson disease Comment: -continue sinamet -add Azilect per neuro recommendations (4) Heart failure Comment: -Echo: EF 40-45%, grade 2 distolic dysfunction; little change from previous study -continue home metoprolol, furosemide (5) Hypertension Comment: -fair control -continue furosemide, metoprolol (6) Hyperlipidemia Comment: -LDL controlled at 49 -continue home statin (7) Dementia Comment: -supportive therapy -neuro recommends consideration of Nuplazid outpatient (8) DVT prophylaxis Comment: -SCDs (9) Full code status Status and Disposition: Inpatient. Discharge when stable.
--- NOTE | 2019-01-22 14:59 | PN ---
Subjective Date of Service: 01/22/19 Length of Stay: 2 Days Neurology is following for the patient's right sided weakness. Interval History: He feels better today. He is still slow with movements. He denied any area of weakness. Family still notice that his right leg is weak. The patient reported sleeping well overnight. He is tolerating the low dose Azilect without any side effects. Imaging studies: Carotid ultrasound: 50-69% stenosis on the right and 50% stenosis on the left. Urinalysis is negative for pyuria. B12 is 315 and TSH is 3.43. Ammonia level is 48. MRI brain without contrast was limited due to motion artifact. The study showed no area of restricted diffusion to suggest stroke. He's too kyphotic to get a cervical spine or MRA of the neck. 2D TTE: mildly to moderately reduced systolic function. EF 40-45%. Hypokinesis of the basalinferioroseptal myocardium. Negative bubble study. Review of Systems: Denied CP, SOB, or palpitations. Objective Active Medications: Acetaminophen (Tylenol Tab*) 650 mg PO Q4H PRN PRN Reason: mild to moderate pain Last Admin: 01/22/19 08:22 Dose: 650 mg Atorvastatin Calcium (Lipitor*) 10 mg PO DAILY [facility] Last Admin: 01/22/19 08:22 Dose: 10 mg Carbidopa/Levodopa (Sinemet 25/100 Tab(*)) 2 tab PO QID [facility] Last Admin: 01/22/19 12:53 Dose: 2 tab Clopidogrel Bisulfate (Plavix Tab*) 75 mg PO DAILY [facility] Last Admin: 01/22/19 08:22 Dose: 75 mg Furosemide (Lasix Tab*) 20 mg PO DAILY [facility] Last Admin: 01/22/19 08:22 Dose: 20 mg Influenza Virus Vaccine (Fluarix Quad [id number] Syr) 0.5 ml IM .ONCE ONE Stop: 01/23/19 09:01 Metoprolol Succinate (Toprol Xl Tab*) 150 mg PO DAILY [facility] Last Admin: 01/22/19 08:22 Dose: 150 mg Polyethylene Glycol/Electrolytes (Miralax*) 17 gm PO DAILY PRN PRN Reason: CONSTIPATION Last Admin: 01/22/19 08:22 Dose: 17 gm Rasagiline (Azilect (Nf)) 0.5 mg PO DAILY [facility] Last Admin: 01/22/19 08:51 Dose: 0.5 mg Vital Signs 01/21/19 01/21/19 01/21/19 15:22 19:46 20:45 Temperature 97.4 F 97.0 F Pulse Rate 71 80 Respiratory 20 20 20 Rate Blood Pressure 121/67 152/63 (mmHg) O2 Sat by Pulse 95 96 Oximetry 01/21/19 01/22/19 01/22/19 23:28 03:15 07:15 Temperature 97.6 F 98.5 F 97.4 F Pulse Rate 75 71 74 Respiratory 21 20 20 Rate Blood Pressure 145/66 161/69 173/82 (mmHg) O2 Sat by Pulse 98 95 92 Oximetry 01/22/19 01/22/19 07:41 11:15 Temperature 97.4 F Pulse Rate 72 Respiratory 20 20 Rate Blood Pressure 139/71 (mmHg) O2 Sat by Pulse 96 Oximetry Intake and Output Last 24 Hours 01/20/19 01/21/19 01/22/19 01/23/19 06:59 06:59 06:59 06:59 Intake Total 0 1100 600 Output Total 0 0 Balance 0 1100 600 Weight 226 lb Intake: IV Fluids 500 NS (0.9%) 500 Oral 0 600 600 Output: Urine 0 0 Other: # Voids 0 Oxygen Devices in Use Now: None Neurology Exam: General: Chronic ill appearing man in no distress. Resting in bed comfortably. He did not have breakfast yet. HEENT: Normocephelic/atraumatic, sclera anicteric, mucous membranes moist Neck: Supple Chest: Clear to auscultation bilaterally Cardiovascular: Regular rate and rhythm without murmurs, rubs, gallops Extremities: No clubbing, cyanosis, or edema Neurological Findings: Awake, alert, and oriented to person, knew he was in the hospital, but not specific time. He has baseline psychomotor slowing and dementia. Hypophonia. Bradykinesia. Speech: dysarthria and hypophonia Cranial Nerve: PERRL, restricted movements of vertical gaze. Minimal fluctuating right facial droop. Masked facies. Motor: 4+/5 on the right and 5/5 on the left. He has 4/5 weakness to dorsiflexion but 5/5 to hip flexors on the right. Significant cogwheel rigidity of the upper and lower extremities bilaterally. Pain in the right shoulder with arm elevation. Sensation: intact to LT/PP bilaterally upper and lower extremities Deep Tendon Reflex: 1+ throughout, absent at the ankles. Finger to nose, rapid alternating movements intact without tremor, no dysdiadochokinesia Gait: wide based gait, retropulsion, fenestrated gait. En bloc turning. Result Diagrams: 01/20/19 14:25 01/21/19 05:28 Assessment/Plan Mr. Cristhian Jennings is a 78-year-old man with history of Parkinson's Disease dementia and psychosis who presented to [facility] on 01/20/2019 with an acute- subacute right hemiparesis and gait instability. The right facial droop was chronic. The patient was hospitalized for stroke but the MRI brain, albeit limited due to motion, was negative for acute stroke. 1. Right hemiparesis and gait instability. The patient cannot have an MRI of the cervical spine due to severe kyphosis. He will need an open MRI as an outpatient. I don't think this is a TIA since he continues to have minimal deficit on the right. I have a suspicion that the limited movement of the right arm is related to rotator cuff injury on the right and the limited movement of the right leg is due to degenerative disc of the lumbar spine, mostly at L5-S1 given the dorsiflexion weakness. Recommendation: acute rehabilitation. Further evaluation for degenerative disc disease of the spine can be done as an outpatient. The patient will unlikely be a great candidate for surgery given his underlying degenerative disorder. We can do an outpatient EMG/NCS of the lower extremity to assess for acute on chronic radiculopathy. We spent 25 minutes today discussing the plan of care with the patient's brothers and [id number] at bedside. The family all agreed that the patient and family would not want to put him through any major spine surgery, if needed. The family would like to pursue testing as an outpatient after rehabilitation with Dr. Talbert. This is a reasonable option at this time since the patient was ambulatory today. It is unclear what caused his transient progression of gait instability, but I doubt that this is acute. I encouraged him to increase his mobility with assistance and minimize We ruled out any vitamin B12 deficiency, UTI, and stroke. Switch aspirin to Plavix. I don't think he needs DAPT since his presentation is unlikely to be vascular related. 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 His progression is concerning for a parkinsonism syndrome like progressive supranuclear palsy, instead of Parkinson's disease. Defer further outpatient evaluation. I started him on low dose Azilect to hopefully help improve his gait. Continue Sinemet 25/100 to take 2 tablets PO four times a day. Increase Azilect to 1 mg daily. 3. Carotid stenosis (50-69% on the right and 50% on the left)- continue Plavix and atorvastatin 10 mg nightly (LDL 49). I prefer not to increase atorvastatin as it can be associated with cognitive side effects. I will continue to follow. Addendum: The patient does not have a rehabilitation bed as of yet. I have ordered an MRI of the L spine to evaluate for L4-5, L5-S1 radiculopathy causing his right leg weakness. The patient cannot have a C spine MRI in a closed MR due to severe kyphosis. He will need to get that study done as an outpatient using an open MRI.
[2019-01-23] MEDS ORDERED: Influenza VAC *QUAD* 2019-20* 0.5 ML SYRINGE IM ONE (09:00)
[2019-01-23] MEDS: Furosemide TAB* 20 MG PO SCH (09:08)
[2019-01-23] MEDS: Atorvastatin* 10 MG TAB PO SCH (09:08)
[2019-01-23] MEDS: Clopidogrel TAB* 75 MG PO SCH (09:08)
[2019-01-23] MEDS: Carbidopa/Levodop 25/100 MG TAB(*) PO SCH ×4 (09:08→21:11)
[2019-01-23] MEDS: Metoprolol Succinate XL TAB* 50 MG PO SCH (09:09)
[2019-01-23] MEDS: Acetaminophen TAB* 325 MG PO PRN ×2 (09:10→21:18)
[2019-01-23] MEDS: Polyethylene Glycol 3350* 17 GM PACKET PO PRN (09:10)
[2019-01-23] MEDS: RASAGILINE 1 MG PO SCH (09:32)
[2019-01-23] MEDS ORDERED: Sodium Phosphate ADULT ENEMA* 118 ml bottle PR ONE (09:55)
--- NOTE | 2019-01-23 11:29 | DS ---
CC: Dr. Eric Louie; Dr. Joy Evans of Neurology; Dr. Alex Talbert of Neurology * DISCHARGE SUMMARY: DATE OF ADMISSION: 01/20/19 DATE OF DISCHARGE: 01/23/19 CHIEF COMPLAINT ON ADMISSION: Right-sided hemiparesis. PRIMARY CARE PROVIDER: Dr. Eric Louie. ATTENDING FOR THIS DISCHARGE: Dr. Carolina Mary.* (DICTATED BY PAULO HUIZAR NP) HOSPITAL COURSE: Please refer to admitting H and P on 01/20/19, but in short, Mr. Jennings is a 78-year-old male patient with a past medical history of Parkinson's disease, mixed heart failure, coronary artery disease, hypertension , and mixed dementia, who presented to the emergency department with an episode of right-sided hemiparesis. The patient does have an underlying dementia secondary to his Parkinsonism, so he does have periods of confusion and is an unreliable historian. His healthcare proxy is his brother, who provides most of the history; however, his brother states that he has been as an outpatient working with Physical Therapy, suddenly became weak, could not stand, there was some dizziness involved. He did not lose consciousness but then they noticed that he was weaker on the right side. The patient was brought to the emergency department for evaluation. There was some talk perhaps the patient having an increase in his Parkinson symptoms, however, there was no report of him having history of increasing falls, only some occasional dizziness or lightheadedness when changing physician. His examination in the emergency department included lab work and CT of the brain. CT of the brain was negative for any acute process. EKG did not show any acute ST segment changes. He was given aspirin and Plavix. He was continued on his Sinemet. Neurology was consulted. There was concern for an acute CVA versus TIA. At that time, an echo was also obtained as was an MRI and MRA of the head and neck. In terms of the patient's echocardiogram, he had some reduced ejection fraction with mildly reduced systolic function. EF was 40% to 45%, also showing some hypokinesis of basal inferoseptal myocardium and also hypokinesis of the basal mid inferior myocardium. Right ventricle showed systolic function that was normal. Mitral valve had trace to mild regurgitation. Aortic valve showed no stenosis with mild regurgitation. Tricuspid valve no significant regurgitation and pulmonary arteries showed systolic pressure that could not be accurately estimated. Compared to his study in May of this year, there was little change. In terms of the patient's imaging, CT of the brain as noted above was negative for any acute infarct. MRI of the brain although is a limited study, there was no changes to suggest acute infarct. Dr. Evans from Neurology did consult on the patient during this admission because of the patient's continued right-sided deficit primarily of the right upper extremity and also some restricted range of motion on that side. The recommendation was to get imaging of the right shoulder and also imaging of the cervical spine. There were some moderate osteoarthritic changes in the glenohumeral and AC joints of the right shoulder. Dr. Evans also recommended imaging of the lumbar spine to rule out acute process that could be contributing to some radicular symptoms of the lower extremity as well. There was some degenerative changes noted at L5-S1 that could be causing symptoms in the lower extremity. There was some narrowing of central canal at L5-S1 on his lumbar MRI. Unfortunately, because of kyphotic changes, the patient was unable to undergo a cervical MRI. Overall, the impression from Neurology is that the hemiparesis and his gait instability are likely secondary to not in fact TIA or CVA, but actually more functional mobility issues secondary to rotator cuff injury on the right and then some degenerative disk disease of the lumbar spine primarily at L5-S1 given the findings on his MRI. Also, given his Parkinson's disease with his underlying dementia and likely psychosis, rapid progression may be a syndrome of a PSP or a progressive supranuclear palsy rather than Parkinson's disease. In either case, the patient is clinically stable. Dr. Evans recommends Plavix only rather than dual antiplatelet therapy, so his aspirin was discontinued. He did have swallow evaluation and physical therapy evaluation. Swallow eval did recommend some modified diet, mechanical ground texture. He is swallowing thin liquids without issue. The recommendation is acute rehab at this time to assist with patient's ambulation. There are some recommendations for further outpatient workup with Dr. Talbert after he is released from rehab perhaps EMG testing for his radicular symptoms would be a benefit. New medication was started. He was tolerating a low dose of Azilect at 0.5 mg. Sinemet was increased to 2 tablets 4 times a day, which he is also tolerating. The recommendation is now to increase the Azilect to 1 mg daily. Continue him on Plavix and statin therapy and the patient is medically stable for discharge to rehab today. In terms of outpatient followup, recommendation would be starting Nuplazid also as an outpatient but this is something that the patient's brother, who was his healthcare proxy can discuss with Dr. Talbert as an outpatient. DISCHARGE DIAGNOSES: 1. Right-sided hemiparesis. 2. Right-sided shoulder pain secondary to rotator cuff injury. 3. 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 4. Chronic mixed heart failure. 5. Hypertension. 6. Mixed hyperlipidemia. 7. Dementia with Parkinson psychosis. DISCHARGE MEDICATIONS: Include: 1. Metoprolol succinate XL 150 mg p.o. daily. 2. Atorvastatin 10 mg p.o. daily. 3. MiraLAX 17 g p.o. daily as needed for constipation. 4. Furosemide 20 mg p.o. daily. 5. Tylenol 650 mg p.o. q.4 hours as needed for shoulder pain. New Medications: 1. Azilect 1 mg p.o. daily. 2. Plavix 75 mg p.o. daily. Changed Medications: 1. Sinemet 25/100 mg 2 tabs p.o. 4 times a day. REVIEW OF SYSTEMS: The patient is an unreliable historian. However, he is denying any fever, fatigue, or chills. He is complaining of some neck pain but denies any headache or dizziness. No shortness of breath. No abdominal pain. No further constitutional complaints. PHYSICAL EXAMINATION: The patient is alert and in no acute distress. Vital signs are blood pressure 154/77, heart rate 72, respiratory rate 20, O2 saturation 98% on room air with temperature of 99.1. HEENT: The patient is atraumatic, normocephalic. PERRLA. Nonicteric sclerae. Oral mucosa is moist. Tongue is midline. He does have a flattened right-sided nasolabial fold with a slight droop to the corner of the right mouth, to the right oral commissure. Neck is supple, nontender. No JVD noted. No carotid bruit auscultated. Cardiovascular: S1, S2 present. No murmurs, gallops, or rubs noted. Rate and rhythm are regular. Lungs are clear bilaterally to auscultation with no wheezing, rhonchi, or rales. Abdomen is soft, nontender, nondistended. Positive bowel sounds in all 4 quadrants. is deferred. Musculoskeletal: There is no clubbing, no cyanosis, no edema. He does have global general weakness. His artist manager are bilaterally weak but slightly weaker on the right side versus left. At baseline, responses are slow. Sometimes he does have difficulty following commands. There is baseline dysarthria. Otherwise, no further focal deficits or alterations noted from previous examinations. LABORATORY DATA: WBCs 5.9, RBCs 4.27, hemoglobin 14.1, hematocrit 42, MCV 98, MCH 33, platelets 135. Sodium 141, potassium 3.9, chloride 105, carbon dioxide 30, BUN 19, creatinine 1.01. GFR 71.4, glucose 106. Hemoglobin A1c 5.8, calcium 9.0, magnesium 2.1. AST 20, ALT 5, alk phos 107, ammonia is 48. Troponin 0.00. Total protein 6.9, albumin 4.1, globulin 2.8. Triglycerides 191 , total cholesterol 117, LDL 49, HDL 29.4. Vitamin B12 is 315. TSH 3.43. IMAGING: Please refer to description of MRIs, shoulder x-ray, CT scan as noted in the body of this document above. DISPOSITION: The patient will be discharged to [facility] via ambulance transport today. DIET: Mechanical ground, thin liquids okay, heart healthy as tolerated. ACTIVITY: Progress activity as tolerated. FOLLOWUP: The patient should follow up with Dr. Louie, his primary care provider within a week of discharge from rehab and also with Dr. Talbert within 1 to 2 weeks of discharge from rehab. TIME SPENT: Thirty five minutes on discharge planning, 50% of which was spent face- to-face with the patient on physical exam and discharge plan and coordination. PAULO HUIZAR NP [id number]/[facility] #: [id number] SUSANA
--- NOTE | 2019-01-23 14:51 | PN ---
Hospitalist Progress Note Date of Service: 01/23/19 Patient ready for discharge today, cannot go to [place] until tomorrow morning. DC prepared. Please see DC Summary today for progress and physical exam. Coordinated with Case Mgmt and primary RN.
--- NOTE | 2019-01-23 15:29 | PN ---
Subjective Date of Service: 01/23/19 Length of Stay: 3 Days Neurology is following for the patient's right sided weakness. Interval History: He feels well today. His brother at bedside stated that he became confused and was delirious last night. He was seeing things that were not there. He was unable to recognize family. He is better today and back to himself. The patient denied any new weakness. He feels that the right sided weakness is better. Imaging studies: Carotid ultrasound: 50-69% stenosis on the right and 50% stenosis on the left. Urinalysis is negative for pyuria. B12 is 315 and TSH is 3.43. Ammonia level is 48. MRI brain without contrast was limited due to motion artifact. The study showed no area of restricted diffusion to suggest stroke. He's too kyphotic to get a cervical spine or MRA of the neck. MRI lumbar spine without contrast: there is moderate narrowing of the central canal at L5-S1. There is multilevel neuroforaminal narrowing, worst at L5-S1 with severe bilateral neuroforminal narrowing. 2D TTE: mildly to moderately reduced systolic function. EF 40-45%. Hypokinesis of the basalinferioroseptal myocardium. Negative bubble study. Review of Systems: Denied CP, SOB, or palpitations. Objective Active Medications: Acetaminophen (Tylenol Tab*) 650 mg PO Q4H PRN PRN Reason: mild to moderate pain Last Admin: 01/23/19 09:10 Dose: 650 mg Atorvastatin Calcium (Lipitor*) 10 mg PO DAILY [facility] Last Admin: 01/23/19 09:08 Dose: 10 mg Carbidopa/Levodopa (Sinemet 25/100 Tab(*)) 2 tab PO QID [facility] Last Admin: 01/23/19 12:34 Dose: 2 tab Clopidogrel Bisulfate (Plavix Tab*) 75 mg PO DAILY [facility] Last Admin: 01/23/19 09:08 Dose: 75 mg Furosemide (Lasix Tab*) 20 mg PO DAILY [facility] Last Admin: 01/23/19 09:08 Dose: 20 mg Metoprolol Succinate (Toprol Xl Tab*) 150 mg PO DAILY [facility] Last Admin: 01/23/19 09:09 Dose: 150 mg Polyethylene Glycol/Electrolytes (Miralax*) 17 gm PO DAILY PRN PRN Reason: CONSTIPATION Last Admin: 01/23/19 09:10 Dose: 17 gm Rasagiline (Azilect (Nf)) 0.5 mg PO DAILY [facility] Last Admin: 01/23/19 09:32 Dose: 0.5 mg Vital Signs 01/22/19 01/22/19 01/23/19 19:17 19:40 00:25 Temperature 97.3 F 98.3 F Pulse Rate 81 87 Respiratory 17 17 16 Rate Blood Pressure 151/70 155/88 (mmHg) O2 Sat by Pulse 95 94 Oximetry 01/23/19 01/23/19 07:15 08:00 Temperature 99.1 F Pulse Rate 72 Respiratory 20 20 Rate Blood Pressure 154/77 (mmHg) O2 Sat by Pulse 98 Oximetry Intake and Output Last 24 Hours 01/21/19 01/22/19 01/23/19 01/24/19 06:59 06:59 06:59 06:59 Intake Total 0 1100 1320 240 Output Total 0 0 200 0 Balance 0 1100 1120 240 Weight 226 lb Intake: IV Fluids 500 0 NS (0.9%) 500 0 Oral 0 600 1320 240 Output: Urine 0 0 200 0 Other: Estimated Void Medium # Voids 0 Oxygen Devices in Use Now: None Neurology Exam: General: Well nourished, well developed, and in no acute distress. Well groomed as the nurses shaved for him today. HEENT: Normocephelic/atraumatic, sclera anicteric, mucous membranes moist Neck: Supple Extremities: No clubbing, cyanosis, or edema Neurological Findings: Awake, alert, and oriented to person not quite to place. He recalls his brother 's name. He has moderate psychomotor slowing. Speech: mild dysarthria and hypophonia. Cranial Nerve: PERRL, EOM intact, VFF, no nystagmus, minimal right facial droop. Motor: s/s throughout, proximal and distal extremities x4 tone/bulk normal. This was different from yesterday's examination where he had weakness in dorsiflexion on the right. Sensation: intact to LT/PP bilaterally upper and lower extremities Deep Tendon Reflex: trace throughout, absent at the ankles bilaterally. Downgoing plantar responses bilaterally. Finger to nose, rapid alternating movements intact without tremor, no dysdiadochokinesia Gait:wide based gait, shuffling, no ataxia. Result Diagrams: 01/20/19 14:25 01/21/19 05:28 Assessment/Plan Mr. Cristhian Jennings is a 78-year-old man with history of Parkinson's Disease dementia and psychosis who presented to [facility] on 01/20/2019 with an acute- subacute right hemiparesis and gait instability. The right facial droop is chronic. The patient was hospitalized for stroke but the MRI brain, albeit limited due to motion, was negative for acute stroke. 1. Right hemiparesis and gait instability. The patient cannot have an MRI of the cervical spine due to severe kyphosis. He will need an open MRI as an outpatient. I don't think this is a TIA since the symptoms lasted longer than 24 hours (lasting almost 48 hours). I have a suspicion that the limited movement of the right arm is related to rotator cuff injury on the right and the limited movement of the right leg is due to degenerative disc of the lumbar spine, mostly at L5-S1 given the dorsiflexion weakness. Interestingly, the weakness improved on today's examination. Recommendation: Acute rehabilitation. We can do an outpatient EMG/NCS of the lower extremity to assess for acute on chronic radiculopathy. The family would like to pursue testing as an outpatient after rehabilitation with Dr. Talbert. This is a reasonable option at this time since the patient was ambulatory today. It is unclear what caused his transient progression of gait instability, but I doubt that this is acute. I suspect progression of his neurodegenerative condition. I encouraged him to increase his mobility with assistance and minimize We ruled out any vitamin B12 deficiency, UTI, and stroke. Switch aspirin to Plavix. I don't think he needs DAPT since his presentation is unlikely to be vascular related. Continue statin therapy. 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 His progression is concerning for a parkinsonism syndrome like progressive supranuclear palsy, instead of Parkinson's disease. Defer further outpatient evaluation. I started him on Azilect, and increased the dose today to 1 mg daily. This will hopefully improve his gait. Continue Sinemet 25/100 to take 2 tablets PO four times a day. I encouraged him to exercise daily. If he develops worsening hallucinations or psychosis, then start Seroquel 25 mg nightly until he is started on Nuplazid as an outpatient. 3. Carotid stenosis (50-69% on the right and 50% on the left)- continue Plavix and atorvastatin 10 mg nightly (LDL 49). I prefer not to increase atorvastatin as it can be associated with cognitive side effects. Follow-up with Dr. Talbert in 3-4 weeks.
[2019-01-24] MEDS ORDERED: Magnesium CITRATE* 300 ML BTL PO ONE (08:47)
[2019-01-24] MEDS ORDERED: RASAGILINE 1 MG PO SCH (09:00)
[2019-01-24] MEDS: Carbidopa/Levodop 25/100 MG TAB(*) PO SCH (11:21)
[2019-01-24] MEDS: Clopidogrel TAB* 75 MG PO SCH (11:21)
[2019-01-24] MEDS: Metoprolol Succinate XL TAB* 50 MG PO SCH (11:21)
[2019-01-24] MEDS: Atorvastatin* 10 MG TAB PO SCH (11:22)
[2019-01-24] MEDS: Furosemide TAB* 20 MG PO SCH (11:22)
[2019-01-24 12:29] VITALS: BP 151/78
== END 2019-01-24 12:45 | DRG 57 ==
LOC: ED 13:40 → MEDTELE 16:47 → INTOOBSV 16:47 → MEDTELE 17:55 → OBSVTOIN 01-21 11:00 → MEDTELE 01-22 22:24
PROVIDERS: ADMIT Internal Medicine; ATTEND Internal Medicine
DX: G81.91 Hemiplegia, unspecified affecting right dominant side (principal); I50.42 Chronic combined systolic (congestive) and diastolic (congestive) heart failure; G23.1 Progressive supranuclear ophthalmoplegia [Steele-Richardson-Olszewski]; M75.101 Unspecified rotator cuff tear or rupture of right shoulder, not specified as traumatic; M51.37 Other intervertebral disc degeneration, lumbosacral region; G20 Parkinson's disease; F29 Unspecified psychosis not due to a substance or known physiological condition; I11.0 Hypertensive heart disease with heart failure; R94.31 Abnormal electrocardiogram [ECG] [EKG]; R29.6 Repeated falls; K59.09 Other constipation; E66.9 Obesity, unspecified; E78.00 Pure hypercholesterolemia, unspecified; F02.80 Dementia in other diseases classified elsewhere, unspecified severity, without behavioral disturbance, psychotic disturbance, mood disturbance, and anxiety; R29.703 NIHSS score 3; R40.2362 Coma scale, best motor response, obeys commands, at arrival to emergency department; R40.2142 Coma scale, eyes open, spontaneous, at arrival to emergency department; H26.9 Unspecified cataract; R40.2252 Coma scale, best verbal response, oriented, at arrival to emergency department; R29.810 Facial weakness; M40.209 Unspecified kyphosis, site unspecified; M25.511 Pain in right shoulder; G89.29 Other chronic pain; I65.23 Occlusion and stenosis of bilateral carotid arteries; I08.0 Rheumatic disorders of both mitral and aortic valves; M19.011 Primary osteoarthritis, right shoulder; E78.2 Mixed hyperlipidemia; M51.36 Other intervertebral disc degeneration, lumbar region; Z87.891 Personal history of nicotine dependence; Z88.0 Allergy status to penicillin; Z23 Encounter for immunization; Z95.1 Presence of aortocoronary bypass graft; Z68.32 Body mass index [BMI] 32.0-32.9, adult; Z95.5 Presence of coronary angioplasty implant and graft; Z83.3 Family history of diabetes mellitus; Z79.899 Other long term (current) drug therapy
CPT/HCPCS: 36415; 70450; 70551; 72148; 80048; 80053; 80061; 81003; 82140; 82607; 83036; 83605; 83735; 84443; 84484; 85025; 85610; 90686; 93005; 93306; 93880; 99284; A9270-GY; G0378; G8978-GP-CK; G8978-GP-CL; G8979-GP-CJ

== ENCOUNTER 2019-01-24 21:27 | Emergency (ER) | payer MEDICARE, BC ==
--- NOTE | 2019-01-24 22:35 | ED ---
Adult Trauma - HPI Summary HPI Summary: 78 year old male presents after fall today. He was discharge from [facility] today and sent to [facility]. according to EMS was at facility and became agitated and combative. Then proceeded to walk away and ended up falling and hitting his head. patient at this time was denying having fallen. No known loss consciousness. He is not voicing any complaints at this time. He is not on any blood thinners. Denies any chest pain or shortness. He is at his normal mental status baseline. Has history of dementia and Parkinson's. Has a right- sided weakness which was just admitted for. [facility]. Son states that is acting normal. - History of Current Complaint Chief Complaint: EDFall Stated Complaint: FALL PER EMS Time Seen by Provider: 01/24/19 21:44 Pain Intensity: 0 - Additional Pertinent History Primary Care Physician: [id number] - Allergy/Home Medications Allergies/Adverse Reactions: Allergies Allergy/AdvReac Type Severity Reaction Status Date / Time Penicillins Allergy Severe Hives Verified 07/07/17 12:43 PMH/Surg Hx/FS Hx/Imm Hx Endocrine/Hematology History: Denies: Hx Diabetes Cardiovascular History: Reports: Hx Congestive Heart Failure - EF 40-45%, Hx Coronary Artery Disease, Hx Hypercholesterolemia, Hx Hypertension Denies: Hx Pacemaker/ICD GI History: Reports: Other GI Disorders - chronic constipation Musculoskeletal History: Reports: Hx Arthritis - osteoarthritis, Other Musculoskeletal History - gait dysfunction, frequent falls Sensory History: Reports: Hx Cataracts, Hx Contacts or Glasses Denies: Hx Eye Injury, Hx Hearing Aid Opthamlomology History: Reports: Hx Cataracts, Hx Contacts or Glasses Denies: Hx Eye Injury Neurological History: Reports: Other Neuro Impairments/Disorders - dementia, parkinson's Psychiatric History: Denies: Hx Panic Disorder - Surgical History Surgery Procedure, Year, and Place: CORONARY STENT. Quadruple bypass surgery Hx Anesthesia Reactions: Yes Infectious Disease History: No Infectious Disease History: Denies: Traveled Outside the [place] in Last 30 Days - Family History Known Family History: Positive: Cardiac Disease, Diabetes - brother - Social History Alcohol Use: None Substance Use Type: Reports: None Hx Tobacco Use: No Smoking Status (MU): Never Smoked Tobacco Review of Systems Negative: Fever Negative: Chest Pain Negative: Shortness Of Breath Neurological: Other - fall Negative: Headache All Other Systems Reviewed And Are Negative: Yes Physical Exam Triage Information Reviewed: Yes Vital Signs On Initial Exam: Initial Vitals Temp Pulse Resp BP Pulse Ox 98.5 F 85 16 133/93 92 01/24/19 21:38 01/24/19 21:38 01/24/19 21:38 01/24/19 21:38 01/24/19 21:38 Vital Signs Reviewed: Yes Appearance: Positive: Well-Appearing Skin: Positive: Warm, Dry Head/Face: Positive: Normal Head/Face Inspection Eyes: Positive: Normal, EDDIE, Conjunctiva Clear. Negative: EOMI - limited ENT: Positive: Pharynx normal Respiratory/Lung Sounds: Positive: Clear to Auscultation, Breath Sounds Present Cardiovascular: Positive: Normal, RRR Musculoskeletal: Positive: Strength/ROM Intact - legs and arms Neurological: Positive: Sensory/Motor Intact, CN Intact II-III, Facial Droop - slight to right that is not new, Speech Normal. Negative: Alert, Oriented to Person Place, Time - only orientated to person - [place] Coma Scale Best Eye Response: 4 - Spontaneous Best Motor Response: 6 - Obeys Commands Best Verbal Response: 4 - Confused Coma Scale Total: 14 Procedures - Sedation Patient Received Moderate/Deep Sedation with Procedure: No Diagnostics - Vital Signs Vital Signs Temp Pulse Resp BP Pulse Ox 01/24/19 21:38 98.5 F 85 16 133/93 92 - Laboratory Lab Statement: Any lab studies that have been ordered have been reviewed, and results considered in the medical decision making process. - CT brain CT Interpretation Completed By: Radiologist Summary of CT Findings: IMPRESSION: No acute intracranial findings. neck CT Interpretation Completed By: Radiologist Summary of CT Findings: IMPRESSION: 1. No acute fracture of the cervical vertebral bodies or posterior elements. 2. No pathologic subluxation. 3. Multilevel degenerative cervical disc disease and facet disease. No significant central canal stenosis. Variable degrees of neural foraminal narrowing secondary degenerative changes of the uncovertebral joints and facet joints. Since prior CT scan of the spine dated 09/27/2018, and no new changes. Re-Evaluation - Re-Evaluation First Eval Re-Evaluation Time: 23:00 Comment: resting comfortable in room, not complaining of any pain Adult Trauma Course/Dx - Course Course Of Treatment: 78 year old male presents after fall today. He was discharge from [facility] today and sent to [facility]. according to EMS was at facility and became agitated and combative. Then proceeded to walk away and ended up falling and hitting his head. patient at this time was denying having fallen. No known loss consciousness. He is not voicing any complaints at this time. He is not on any blood thinners. Denies any chest pain or shortness. He is at his normal mental status baseline. Has history of dementia and Parkinson's. Has a right-sided weakness which was just admitted for. Sent to [facility] for [facility]. Son states that is acting normal. On exam no injury noted. Is alert only to person. slight facial droop on the right that is not new per notes. Range of motion of extremities intact. Restricted extraocular movements that is also not new. Otherwise normal exam. CT brain and neck are normal. Discuss with family that will send back to [facility]. Patient was not agitated while here. Patient's family understand and agree with plan. - Diagnoses Differential Diagnosis/HQI/PQRI: Positive: Fracture, Sprain, Strain Provider Diagnoses: Fall Discharge ED - Sign-Out/Discharge Documenting (check all that apply): Patient Departure - Discharge Plan Condition: Good Disposition: HOME Patient Education Materials: Fall Prevention for Older Adults (ED) Referrals: Eric Louie MD [Primary Care Provider] - Additional Instructions: follow up with primary within 4 days Return to ED if develop any new or worsening symptoms - Billing Disposition and Condition Condition: GOOD Disposition: Home
[2019-01-25 01:22] VITALS: BP 139/68
== END 2019-01-24 23:45 | disposition home or self-care (01) ==
LOC: ED 21:27
DX: Z04.3 Encounter for examination and observation following other accident (principal); W19.XXXA Unspecified fall, initial encounter; Y92.129 Unspecified place in nursing home as the place of occurrence of the external cause; G20 Parkinson's disease; F02.80 Dementia in other diseases classified elsewhere, unspecified severity, without behavioral disturbance, psychotic disturbance, mood disturbance, and anxiety; I50.9 Heart failure, unspecified; I11.0 Hypertensive heart disease with heart failure; I25.10 Atherosclerotic heart disease of native coronary artery without angina pectoris; E78.00 Pure hypercholesterolemia, unspecified; Z95.5 Presence of coronary angioplasty implant and graft; Z95.1 Presence of aortocoronary bypass graft; Z88.0 Allergy status to penicillin
CPT/HCPCS: 70450; 72125; 99283

== ENCOUNTER 2020-05-26 18:50 | Inpatient (IN) ==
[2020-05-26] MEDS ORDERED: NS 0.9% 1000 ml BAG 1,000 ML IV ONE (18:52)
[2020-05-26 19:46] LABS: ABS Lymphocytes 1.1 10^3/ul (1.0-4.8); ABS Monocytes 1.1 10^3/ul (0-0.8); ABS Neutrophils 7.5 10^3/ul (1.5-7.7); Eosinophil % 0.2 %; Hematocrit 35 % (42-52); Hemoglobin 11.9 g/dL (14.0-18.0); Lymphocyte % 10.9 %; Mean Corpuscular HGB Conc 34 g/dL (31-36); Mean Corpuscular Hemoglobin 33 pg (27-31); Mean Corpuscular Volume 97 fL (80-94); Mean Platelet Volume 7.9 fL (7.4-10.4); Platelet Count 167 10^3/uL (150-450); Red Blood Count 3.61 10^6 /uL (4.18-5.48); Red Cell Distribution Width 14 % (10-15); White Blood Count 9.7 10^3/uL (3.5-10.8)
[2020-05-26 19:55] LABS: Activated Partial Thrombo Time 25.2 seconds (26.0-38.0); INR 1.24 (0.82-1.09)
[2020-05-26 20:16] LABS: ALT < 3 U/L (7-52); AST 18 U/L (13-39); Albumin 3.3 g/dL (3.2-5.2); Albumin/Globulin Ratio 1.2 (1-3); Alkaline Phosphatase 108 U/L (34-104); Anion Gap 5 mmol/L (2-11); BUN/Creatinine Ratio 31.8 (8-20); Blood Urea Nitrogen 35 mg/dL (6-24); CO2 Carbon Dioxide 32 mmol/L (22-32); Calcium 8.8 mg/dL (8.6-10.3); Chloride 100 mmol/L (101-111); Cholesterol 82 mg/dL; EGFR African American 78.1 (>60); EGFR Non-African American 64.6 (>60); Globulin 2.7 g/dL (2-4); Glucose 112 mg/dL (70-100); HDL Cholesterol 29.8 mg/dL; LDL Cholesterol 38 mg/dL; Potassium 4.3 mmol/L (3.5-5.0); Sodium 137 mmol/L (135-145); Triglycerides 71 mg/dL; Troponin I 0.01 ng/mL (<0.03)
[2020-05-26 21:41] LABS: Urine Appearance Cloudy; Urine Bilirubin Negative (Negative); Urine Blood 3+ (Negative); Urine Color Amber; Urine Glucose Negative (Negative); Urine Ketones Trace (Negative); Urine Nitrite Negative (Negative); Urine Protein 1+(30 mg/dL) (Negative); Urine Specific Gravity 1.059 (1.010-1.030); Urine Urobilinogen Positive (Negative)
[2020-05-26 21:45] LABS: Urine Bacteria Absent (Absent); Urine Red Blood Cell 3+(>10/hpf) (Absent); Urine Squamous Epithelial Cell Present (Absent); Urine White Blood Cell 3+(>20/hpf) (Absent)
[2020-05-26] MEDS ORDERED: Polyethylene Glycol 3350 17 GM PACKET PO PRN (21:59)
[2020-05-26] MEDS ORDERED: NS 0.9% 1000 ml BAG 1,000 ML IV SCH (22:15)
[2020-05-26 22:19] LABS: C Reactive Protein 75.65 mg/L (<8.01)
[2020-05-27 00:37] LABS: Hepatitis B Surface Antigen Nonreactive (Nonreactive)
[2020-05-27 00:42] LABS: Hepatitis A Ab IgM Negative (Negative)
[2020-05-27 00:43] LABS: Hepatitis B Core IgM Nonreactive (Nonreactive)
[2020-05-27 00:55] LABS: Hepatitis C Antibody Negative (Negative)
[2020-05-27] MEDS: cefTRIAXone 1 gm/50 mL NS BAG 1 GM/50 ML BAG IVPB SCH ×2 (03:10→22:14)
[2020-05-27] MEDS: metroNIDAZOLE IV 500 MG/100ML 500 MG/100 ML BAG IVPB SCH ×3 (03:50→18:03)
[2020-05-27] MEDS: Heparin 5000 UNITS/ML 1 mL VIAL SUBCUT SCH ×4 (06:26→22:13)
[2020-05-27 06:53] LABS: ABS Eosinophils 0.1 10^3/ul (0-0.6); ABS Lymphocytes 1.4 10^3/ul (1.0-4.8); ABS Monocytes 0.8 10^3/ul (0-0.8); ABS Neutrophils 4.6 10^3/ul (1.5-7.7); Eosinophil % 1.3 %; Hematocrit 33 % (42-52); Hemoglobin 11.1 g/dL (14.0-18.0); Lymphocyte % 20.8 %; Mean Corpuscular HGB Conc 33 g/dL (31-36); Mean Corpuscular Hemoglobin 33 pg (27-31); Mean Corpuscular Volume 98 fL (80-94); Mean Platelet Volume 7.9 fL (7.4-10.4); Platelet Count 137 10^3/uL (150-450); Red Cell Distribution Width 15 % (10-15); White Blood Count 6.9 10^3/uL (3.5-10.8)
[2020-05-27 06:59] LABS: INR 1.21 (0.82-1.09)
[2020-05-27 07:10] LABS: Albumin 3.1 g/dL (3.2-5.2); Albumin/Globulin Ratio 1.2 (1-3); BUN/Creatinine Ratio 46.9 (8-20); Calcium 8.6 mg/dL (8.6-10.3); EGFR Non-African American 120.6 (>60); Globulin 2.6 g/dL (2-4); Potassium 3.8 mmol/L (3.5-5.0); Total Bilirubin 1.7 mg/dL (0.2-1.0); Total Protein 5.7 g/dL (6.4-8.9)
[2020-05-27] MEDS ORDERED: Senna/Docusate 8.6/50 mg (NF) TAB PO SCH (09:00)
[2020-05-27] MEDS: Carbidopa/Levodop 25/100 MG TAB PO SCH ×4 (10:07→18:03)
[2020-05-27] MEDS: Aspirin EC 81 mg TAB.EC (enteric coated) PO SCH (10:17)
[2020-05-27] MEDS: Senna TAB 8.6 mg TAB PO SCH (10:19)
[2020-05-27] MEDS: Nystatin TOP POWDER 15 GM BTL TOPICAL SCH ×2 (10:20→20:18)
[2020-05-28] MEDS: metroNIDAZOLE IV 500 MG/100ML 500 MG/100 ML BAG IVPB SCH ×3 (02:20→18:34)
[2020-05-28] MEDS: Carbidopa/Levodop 25/100 MG TAB PO SCH ×4 (07:06→18:40)
[2020-05-28] MEDS: Heparin 5000 UNITS/ML 1 mL VIAL SUBCUT SCH ×3 (07:07→21:29)
[2020-05-28] MEDS: Senna TAB 8.6 mg TAB PO SCH (09:07)
[2020-05-28] MEDS: Aspirin EC 81 mg TAB.EC (enteric coated) PO SCH (09:07)
[2020-05-28] MEDS: Nystatin TOP POWDER 15 GM BTL TOPICAL SCH ×2 (09:07→21:30)
[2020-05-28] MEDS: cefTRIAXone 1 gm/50 mL NS BAG 1 GM/50 ML BAG IVPB SCH (23:27)
[2020-05-29] MEDS: metroNIDAZOLE IV 500 MG/100ML 500 MG/100 ML BAG IVPB SCH ×2 (01:37→09:54)
[2020-05-29] MEDS: Carbidopa/Levodop 25/100 MG TAB PO SCH ×2 (06:23→11:32)
[2020-05-29] MEDS: Heparin 5000 UNITS/ML 1 mL VIAL SUBCUT SCH (06:25)
[2020-05-29 06:59] LABS: ABS Eosinophils 0.1 10^3/ul (0-0.6); ABS Lymphocytes 1.1 10^3/ul (1.0-4.8); ABS Monocytes 0.3 10^3/ul (0-0.8); ABS Neutrophils 2.9 10^3/ul (1.5-7.7); Eosinophil % 2.7 %; Hematocrit 33 % (42-52); Hemoglobin 11.2 g/dL (14.0-18.0); Lymphocyte % 24.2 %; Mean Corpuscular HGB Conc 34 g/dL (31-36); Mean Corpuscular Hemoglobin 33 pg (27-31); Mean Corpuscular Volume 97 fL (80-94); Mean Platelet Volume 7.9 fL (7.4-10.4); Platelet Count 152 10^3/uL (150-450); Red Blood Count 3.42 10^6 /uL (4.18-5.48); Red Cell Distribution Width 14 % (10-15); White Blood Count 4.5 10^3/uL (3.5-10.8)
[2020-05-29 07:06] LABS: Albumin 3.1 g/dL (3.2-5.2); Albumin/Globulin Ratio 1.2 (1-3); BUN/Creatinine Ratio 29.2 (8-20); Calcium 8.3 mg/dL (8.6-10.3); EGFR African American 143.4 (>60); EGFR Non-African American 118.5 (>60); Globulin 2.6 g/dL (2-4); Total Bilirubin 0.8 mg/dL (0.2-1.0); Total Protein 5.7 g/dL (6.4-8.9)
[2020-05-29] MEDS: Senna TAB 8.6 mg TAB PO SCH (09:33)
[2020-05-29] MEDS: Aspirin EC 81 mg TAB.EC (enteric coated) PO SCH (09:46)
[2020-05-29] MEDS: Nystatin TOP POWDER 15 GM BTL TOPICAL SCH (09:48)
[2020-05-29 12:39] VITALS: BP 150/63
== END 2020-05-29 14:15 | disposition home health service (06) | DRG 312 ==
LOC: ED 18:50 → INTOOBSV 21:47 → MED 21:47
PROVIDERS: ADMIT Internal Medicine; ATTEND Pediatrics

== ENCOUNTER 2021-01-02 13:26 | Inpatient (IN) ==
[2021-01-02 14:16] LABS: PCO2 Arterial 56 mmHg (35-45); PO2 Arterial 78 mmHg (80-100)
[2021-01-02] MEDS ORDERED: Naloxone 0.4 mg VIAL 0.4 mg/ml 1 ml VIAL IV PUSH ONE ×2 (14:35→16:58)
[2021-01-02 14:47] LABS: ABS Lymphocytes 0.8 10^3/ul (1.0-4.8); ABS Monocytes 0.5 10^3/ul (0-0.8); ABS Neutrophils 8.1 10^3/ul (1.5-7.7); Eosinophil % 0.5 %; Hematocrit 33 % (42-52); Lymphocyte % 8.7 %; Mean Corpuscular HGB Conc 33 g/dL (31-36); Mean Corpuscular Hemoglobin 33 pg (27-31); Mean Corpuscular Volume 99 fL (80-94); Mean Platelet Volume 8.2 fL (7.4-10.4); Platelet Count 184 10^3/uL (150-450); Red Blood Count 3.35 10^6 /uL (4.18-5.48); Red Cell Distribution Width 15 % (10-15); White Blood Count 9.5 10^3/uL (3.5-10.8)
[2021-01-02 14:49] LABS: Urine Appearance Cloudy; Urine Bilirubin 1+ (Negative); Urine Blood Negative (Negative); Urine Color Amber; Urine Glucose Negative (Negative); Urine Ketones Trace (Negative); Urine Nitrite Positive (Negative); Urine Protein 2+(100 mg/dL) (Negative); Urine Specific Gravity 1.029 (1.002-1.030); Urine Urobilinogen Positive (Negative)
[2021-01-02 15:04] LABS: Albumin 3.2 g/dL (3.2-5.2); C Reactive Protein 65.29 mg/L (<8.01); Calcium 8.9 mg/dL (8.6-10.3); Globulin 3.2 g/dL (2-4); Potassium 3.8 mmol/L (3.5-5.0); Total Bilirubin 1.9 mg/dL (0.2-1.0); Total Protein 6.4 g/dL (6.4-8.9)
[2021-01-02 15:05] LABS: Troponin I 0.02 ng/mL (<0.03)
[2021-01-02 15:05] LABS: Rapid COVID-19 Molecular Undetected (Undetected)
[2021-01-02 15:06] LABS: Urine Bacteria 1+ (Absent); Urine Red Blood Cell 1+(3-5/hpf) (Absent); Urine White Blood Cell 3+(>20/hpf) (Absent)
[2021-01-02 15:13] LABS: Activated Partial Thrombo Time 25.6 seconds (26.0-38.0); INR 1.24 (0.86-1.15)
[2021-01-02] MEDS ORDERED: cefTRIAXone 1 gm/50 mL NS BAG 1 GM/50 ML BAG IV ONE (15:18)
[2021-01-02 15:42] LABS: Urine Benzodiazepine Screen None Detected (None Detect); Urine Cannabinoids Screen None Detected (None Detect); Urine Opiates Screen None Detected (None Detect)
[2021-01-02] MEDS ORDERED: NS 0.45% 1000 ml BAG 1,000 ML IV SCH (17:00)
[2021-01-02] MEDS ORDERED: Vancomycin 1,000 MG in NS 0.9% 250 ml 250 ML IVPB ONE (17:08)
[2021-01-02] MEDS ORDERED: NS 0.9% 1000 ml BAG 1,000 ML IV ONE (17:10)
[2021-01-02] MEDS ORDERED: Acetaminophen IV 1 GM/100ML 100 ML IV PRN (17:14)
[2021-01-02] MEDS ORDERED: NS 0.9% 1000 ml BAG 1,000 ML IV SCH (17:15)
[2021-01-02 17:47] LABS: Direct Bilirubin 0.3 mg/dL (0.03-0.18); Indirect Bilirubin 1.6 mg/dL (0.3-1.0)
[2021-01-02] MEDS ORDERED: Vancomycin per Pharmacy 1 EA NOTE FOLLOW UP SCH (18:00)
[2021-01-02 19:09] LABS: ABS Lymphocytes 0.9 10^3/ul (1.0-4.8); ABS Monocytes 0.4 10^3/ul (0-0.8); ABS Neutrophils 7.7 10^3/ul (1.5-7.7); Eosinophil % 0.3 %; Hematocrit 36 % (42-52); Hemoglobin 11.9 g/dL (14.0-18.0); Lymphocyte % 9.6 %; Mean Corpuscular HGB Conc 34 g/dL (31-36); Mean Corpuscular Hemoglobin 33 pg (27-31); Mean Corpuscular Volume 98 fL (80-94); Mean Platelet Volume 7.9 fL (7.4-10.4); Platelet Count 223 10^3/uL (150-450); Red Blood Count 3.63 10^6 /uL (4.18-5.48); Red Cell Distribution Width 15 % (10-15)
[2021-01-02 19:26] LABS: Albumin 3.3 g/dL (3.2-5.2); C Reactive Protein 97.01 mg/L (<8.01); Calcium 8.9 mg/dL (8.6-10.3); Globulin 3.4 g/dL (2-4); Total Bilirubin 1.6 mg/dL (0.2-1.0); Total Protein 6.7 g/dL (6.4-8.9)
[2021-01-02 19:28] LABS: Troponin I 0.02 ng/mL (<0.03)
[2021-01-02 19:30] LABS: PCO2 Arterial 40 mmHg (35-45); PO2 Arterial 208 mmHg (80-100)
[2021-01-02] MEDS: Metoprolol Tartrate 5 mg VIAL 5 ml VIAL (1 mg/ml) IV SCH (20:19)
[2021-01-02] MEDS: CMCS:Carbidopa/Levodopa ODT (NF) 25/100 ODT SL SCH (20:19)
[2021-01-02] MEDS: Enoxaparin 40 MG/0.4 ML SYR SUBCUT SCH (20:19)
[2021-01-03] MEDS: Metoprolol Tartrate 5 mg VIAL 5 ml VIAL (1 mg/ml) IV SCH ×4 (00:01→21:09)
[2021-01-03 04:10] LABS: ABS Lymphocytes 0.5 10^3/ul (1.0-4.8); ABS Monocytes 0.3 10^3/ul (0-0.8); ABS Neutrophils 7.3 10^3/ul (1.5-7.7); Hematocrit 30 % (42-52); Hemoglobin 9.8 g/dL (14.0-18.0); Lymphocyte % 6.4 %; Mean Corpuscular HGB Conc 33 g/dL (31-36); Mean Corpuscular Hemoglobin 32 pg (27-31); Mean Corpuscular Volume 97 fL (80-94); Mean Platelet Volume 8.1 fL (7.4-10.4); Platelet Count 157 10^3/uL (150-450); Red Blood Count 3.04 10^6 /uL (4.18-5.48); Red Cell Distribution Width 15 % (10-15); White Blood Count 8.1 10^3/uL (3.5-10.8)
[2021-01-03 04:47] LABS: Albumin 2.7 g/dL (3.2-5.2); C Reactive Protein 136.97 mg/L (<8.01); Calcium 8.1 mg/dL (8.6-10.3); Globulin 2.7 g/dL (2-4); Potassium 3.8 mmol/L (3.5-5.0); Total Protein 5.4 g/dL (6.4-8.9)
[2021-01-03] MEDS ORDERED: Cefepime 1 GM in Dextrose 1 GM/50 ML BAG IV SCH (06:00)
[2021-01-03] MEDS ORDERED: Vancomycin 750 MG in NS 0.9% 250 ML IVPB SCH (08:30)
[2021-01-03] MEDS: CMCS:Carbidopa/Levodopa ODT (NF) 25/100 ODT SL SCH ×4 (08:50→20:16)
[2021-01-03] MEDS: cefTRIAXone 1 gm/50 mL NS BAG 1 GM/50 ML BAG IVPB SCH (10:05)
[2021-01-03] MEDS: Azithromycin 500 mg/250 ml NS 500 MG/250 ML BAG IVPB SCH (10:53)
[2021-01-03] MEDS ORDERED: Lactated Ringers 1000 ml BAG 1,000 ML IV SCH (14:00)
[2021-01-03] MEDS ORDERED: cefTRIAXone 1 gm/50 mL NS BAG 1 GM/50 ML BAG IVPB SCH (17:00)
[2021-01-03] MEDS: Enoxaparin 40 MG/0.4 ML SYR SUBCUT SCH (17:20)
[2021-01-03] MEDS ORDERED: Haloperidol 5 mg/ml SDV IV/IM 5 MG/ML AMP IV SLOW PU ONE (21:05)
[2021-01-03] MEDS ORDERED: Haloperidol 5 mg/ml SDV IV/IM 5 MG/ML AMP ONE (21:06)
[2021-01-04] MEDS: Metoprolol Tartrate 5 mg VIAL 5 ml VIAL (1 mg/ml) IV SCH ×4 (01:02→18:06)
[2021-01-04 06:35] LABS: ABS Lymphocytes 0.8 10^3/ul (1.0-4.8); ABS Monocytes 0.5 10^3/ul (0-0.8); ABS Neutrophils 10.7 10^3/ul (1.5-7.7); ALT < 3 U/L (7-52); AST 19 U/L (13-39); Albumin 2.8 g/dL (3.2-5.2); Albumin/Globulin Ratio 0.9 (1-3); Alkaline Phosphatase 112 U/L (35-149); Blood Urea Nitrogen 38 mg/dL (6-24); CO2 Carbon Dioxide 29 mmol/L (22-32); Calcium 8.5 mg/dL (8.6-10.3); Eosinophil % 0.2 %; Glucose 96 mg/dL (70-100); Hematocrit 29 % (42-52); Hemoglobin 9.3 g/dL (14.0-18.0); Indirect Bilirubin 1.1 mg/dL (0.3-1.0); Lymphocyte % 6.4 %; Magnesium 1.9 mg/dL (1.9-2.7); Mean Corpuscular HGB Conc 32 g/dL (31-36); Mean Corpuscular Hemoglobin 31 pg (27-31); Mean Corpuscular Volume 99 fL (80-94); Mean Platelet Volume 8.7 fL (7.4-10.4); Platelet Count 169 10^3/uL (150-450); Potassium 3.7 mmol/L (3.5-5.0); Red Blood Count 2.95 10^6 /uL (4.18-5.48); Red Cell Distribution Width 15 % (10-15); Total Protein 5.8 g/dL (6.4-8.9)
[2021-01-04 06:42] LABS: Anion Gap 7 mmol/L (2-11); Chloride 112 mmol/L (101-111); Sodium 148 mmol/L (135-145)
[2021-01-04] MEDS ORDERED: Vancomycin Trough Check NOTE FOLLOW UP ONE (08:00)
[2021-01-04] MEDS: CMCS:Carbidopa/Levodopa ODT (NF) 25/100 ODT SL SCH ×4 (08:49→18:06)
[2021-01-04] MEDS: cefTRIAXone 1 gm/50 mL NS BAG 1 GM/50 ML BAG IVPB SCH (10:03)
[2021-01-04] MEDS: D5W 1/2 NS 1000 ml BAG 1,000 ML IV SCH ×2 (10:08→23:39)
[2021-01-04] MEDS: KCL 10 MEQ/50 ML IVPREMIX 10 MEQ/50 ML BAG IV SCH ×2 (10:10→11:59)
[2021-01-04] MEDS: Azithromycin 500 mg/250 ml NS 500 MG/250 ML BAG IVPB SCH (10:49)
[2021-01-04] MEDS: Chlorhexidine MOUTHWASH 0.12% 15 ML UDC SWISH SPIT SCH ×3 (11:54→21:56)
[2021-01-04] MEDS: Enoxaparin 40 MG/0.4 ML SYR SUBCUT SCH (18:06)
[2021-01-05] MEDS: Metoprolol Tartrate 5 mg VIAL 5 ml VIAL (1 mg/ml) IV SCH ×4 (01:36→17:08)
[2021-01-05 06:32] LABS: ABS Lymphocytes 0.8 10^3/ul (1.0-4.8); ABS Monocytes 0.3 10^3/ul (0-0.8); ABS Neutrophils 5.9 10^3/ul (1.5-7.7); Eosinophil % 0.6 %; Hematocrit 25 % (42-52); Hemoglobin 8.1 g/dL (14.0-18.0); Lymphocyte % 11.8 %; Mean Corpuscular HGB Conc 33 g/dL (31-36); Mean Corpuscular Hemoglobin 32 pg (27-31); Mean Corpuscular Volume 98 fL (80-94); Mean Platelet Volume 8.3 fL (7.4-10.4); Platelet Count 135 10^3/uL (150-450); Red Blood Count 2.53 10^6 /uL (4.18-5.48); Red Cell Distribution Width 15 % (10-15); White Blood Count 7.1 10^3/uL (3.5-10.8)
[2021-01-05 06:58] LABS: Albumin 2.3 g/dL (3.2-5.2); Albumin/Globulin Ratio 0.9 (1-3); Calcium 7.5 mg/dL (8.6-10.3); Globulin 2.5 g/dL (2-4); Magnesium 1.8 mg/dL (1.9-2.7); Phosphorus 2.1 mg/dL (2.5-5.0); Potassium 3.5 mmol/L (3.5-5.0); Total Protein 4.8 g/dL (6.4-8.9)
[2021-01-05] MEDS: CMCS:Carbidopa/Levodopa ODT (NF) 25/100 ODT SL SCH ×4 (07:38→20:40)
[2021-01-05] MEDS ORDERED: Magnesium Sulfate 2 gm BAG 2 GM/50 ML BAG IVPB ONE (07:42)
[2021-01-05] MEDS ORDERED: Potassium & Sodium Phos 250 mg = 1 PACKET PO ONE (07:43)
[2021-01-05] MEDS ORDERED: KCL 10 MEQ/50 ML IVPREMIX 10 MEQ/50 ML BAG IV SCH (08:00)
[2021-01-05] MEDS: KCL 20 MEQ/100 ML IVPREMIX 20 MEQ/100 ML BAG IV SCH ×2 (08:09→10:28)
[2021-01-05] MEDS ORDERED: Potassium Phosphate IV 15 MMOLE in NS 0.9% 250 ml 250 ML IVPB ONE (09:00)
[2021-01-05] MEDS: Azithromycin 500 mg/250 ml NS 500 MG/250 ML BAG IVPB SCH (10:07)
[2021-01-05] MEDS: cefTRIAXone 1 gm/50 mL NS BAG 1 GM/50 ML BAG IVPB SCH (10:07)
[2021-01-05] MEDS: D5W 1000 ml BAG 1,000 ML IV SCH ×2 (10:09→23:57)
[2021-01-05] MEDS: Chlorhexidine MOUTHWASH 0.12% 15 ML UDC SWISH SPIT SCH ×3 (10:28→20:39)
[2021-01-05] MEDS ORDERED: Furosemide 20 mg/2 ml IV VIAL IV SLOW PU ONE (14:45)
[2021-01-05] MEDS: Enoxaparin 40 MG/0.4 ML SYR SUBCUT SCH (17:08)
[2021-01-05] MEDS: Morphine 2 MG/ML SYRINGE IV PRN (18:16)
[2021-01-06] MEDS: Metoprolol Tartrate 5 mg VIAL 5 ml VIAL (1 mg/ml) IV SCH ×3 (00:50→13:01)
[2021-01-06] MEDS: CMCS:Carbidopa/Levodopa ODT (NF) 25/100 ODT SL SCH ×4 (07:31→18:36)
[2021-01-06] MEDS: cefTRIAXone 1 gm/50 mL NS BAG 1 GM/50 ML BAG IVPB SCH (09:23)
[2021-01-06] MEDS: Chlorhexidine MOUTHWASH 0.12% 15 ML UDC SWISH SPIT SCH ×3 (09:23→21:09)
[2021-01-06] MEDS: Azithromycin 500 mg/250 ml NS 500 MG/250 ML BAG IVPB SCH (20:05)
[2021-01-06] MEDS: Morphine 2 MG/ML SYRINGE IV PRN (21:09)
[2021-01-07] MEDS: CMCS:Carbidopa/Levodopa ODT (NF) 25/100 ODT SL SCH ×4 (07:50→21:48)
[2021-01-07] MEDS: Chlorhexidine MOUTHWASH 0.12% 15 ML UDC SWISH SPIT SCH ×3 (08:54→21:49)
[2021-01-07] MEDS: Morphine 2 MG/ML SYRINGE IV PRN (21:49)
[2021-01-08] MEDS: CMCS:Carbidopa/Levodopa ODT (NF) 25/100 ODT SL SCH ×4 (07:13→20:27)
[2021-01-08] MEDS: Chlorhexidine MOUTHWASH 0.12% 15 ML UDC SWISH SPIT SCH ×2 (09:00→14:52)
[2021-01-08] MEDS ORDERED: CMCS:Saliva Substitute (NF) 1 SPRAY BTL MT PRN (15:48)
[2021-01-09] MEDS: CMCS:Carbidopa/Levodopa ODT (NF) 25/100 ODT SL SCH ×4 (07:41→19:48)
[2021-01-09] MEDS: Morphine 2 MG/ML SYRINGE IV PRN ×2 (09:47→17:54)
[2021-01-09 21:01] VITALS: BP 122/52
[2021-01-10] MEDS: CMCS:Carbidopa/Levodopa ODT (NF) 25/100 ODT SL SCH ×4 (07:16→21:38)
[2021-01-10] MEDS: Morphine 2 MG/ML SYRINGE IV PRN (09:16)
[2021-01-11] MEDS: CMCS:Carbidopa/Levodopa ODT (NF) 25/100 ODT SL SCH ×4 (08:02→19:12)
[2021-01-11] MEDS: Morphine ORAL CONCENTRATE 5 MG/0.25 ML ORAL.SYRIN SL PRN ×3 (09:02→18:11)
[2021-01-11 15:09] LABS: Rapid COVID-19 Molecular Undetected (Undetected)
[2021-01-11] MEDS ORDERED: Senna TAB 8.6 mg TAB PO PRN (15:42)
[2021-01-12] MEDS: CMCS:Carbidopa/Levodopa ODT (NF) 25/100 ODT SL SCH (08:15)
[2021-01-12] MEDS: Morphine ORAL CONCENTRATE 5 MG/0.25 ML ORAL.SYRIN SL PRN (08:36)
== END 2021-01-12 10:15 | disposition hospice, inpatient (51) | DRG 871 ==
LOC: MED 13:26 → ED 13:26 → ICU 19:55 → SUATTDRO 01-03 12:52 → MED 01-08 22:34
PROVIDERS: ADMIT Internal Medicine; ATTEND Internal Medicine